=== PATIENT | male | born 1960 | race Two or more races ===

== ENCOUNTER 2019-02-07 22:43 | Inpatient (IN) | payer MEDICARE, OTHER ==
[~2019-02-07] VITALS: Ht 170.2 cm; Wt 70.8 kg
--- NOTE | 2019-02-07 23:00 | NUR ---
PATIENT REFUSED VITALS TAKEN, PULLED THE BP CUFF, STATED,"LEAVE ME ALONE."
--- NOTE | 2019-02-07 23:10 | NUR ---
INITIAL ACCUCHECK DONE ON ADMISSION, 232 MG/DL, PATIENT REFUSED ANY MEDS, STATED, " I DON'T NEED ANYTHING, LEAVE ME ALONE." OFFERED HS SNACKS, ALSO REFUSED.
--- NOTE | 2019-02-07 23:15 | NUR ---
GPS ORACLE OBIEE DEVELOPER NOTE: ADMITTED A 58 YEAR OLD MALE FROM [facility], INITIALLY CAME FROM A BOARD AND CARE, BROUGHT IN BY PARAMEDICS VIA GURNEY SECONDARY TO ERRATIC BEHAVIOR, RAN OUT INTO THE STREET, REFUSED TO GET UP. PATIENT ADMITTED ON 5150 HOLD FOR GD. PATIENT IS A/O X2-3, CONFUSED, DISORGANIZED, VERBALLY ABUSIVE, NON-COMPLIANT AND , DELUSIONAL, NOT ABLE TO PROVIDE FOR HIS FOOD, CUSTODIAL OR CLOTHING. NO ACUTE DISTRESS NOTED, RESPIRATION EVEN, BREATHING PATTERN NON-LABORED, RISE AND FALL OF THE CHEST NOTED. PATIENT REFUSED TO SIGN CONSENT. PATIENT IS VERY UNCOOPERATIVE, ANGRY, DEPRESSED, ANXIOUS, UNKEMPT. REFUSED MRSA SCREEN, REFUSED TOTAL BODY ASSESSMENT, REFUSED PHOTO TAKEN, REFUSED VITALS. PATIENT STATED, LEAVE ME ALONE." PATIENT IS UNDER THE PSYCHIATRIC CARE OF DR. MONTOYA, AND MEDICAL CARE OF MARIA CAMARILLO. MED RECON NEEDS TO BE DONE. BELONGINGS INVENTORIED AND CHECKED FOR CONTRABAND. BED LOCKED AND PLACED ON LOWEST POSITION FOR SAFETY. WILL CONTINUE TO MONITOR Q 15 MINS FOR SAFETY AND BEHAVIOR.
[2019-02-07] MEDS ORDERED: MAGNESIUM HYDROXIDE 30 ML UDC PO PRN (23:30)
[2019-02-07] MEDS ORDERED: MAG HYDROX/AL HYDROX/SIMETH 30 ML UDC PO PRN (23:30)
[2019-02-07] MEDS ORDERED: ACETAMINOPHEN 325 MG TABLET PO PRN (23:30)
[2019-02-08] MEDS ORDERED: AZIT250T13 PO (03:04)
[2019-02-08] MEDS ORDERED: HYDR-4076 PO (03:04)
[2019-02-08] MEDS ORDERED: ATOR80TA PO (03:04)
[2019-02-08] MEDS ORDERED: ALPR0.5T8 PO (03:04)
[2019-02-08] MEDS ORDERED: ASPI-869 PO (03:04)
[2019-02-08] MEDS ORDERED: CARV3.122 PO (03:04)
[2019-02-08] MEDS ORDERED: INSU100I4 SQ (03:04)
[2019-02-08] MEDS ORDERED: LOSA100T31 PO (03:04)
[2019-02-08] MEDS ORDERED: QUET100T PO (03:04)
[2019-02-08] MEDS ORDERED: GABA-532 PO (03:04)
[2019-02-08] MEDS ORDERED: NITR0.4T48 SL (03:04)
[2019-02-08] MEDS ORDERED: CELE200C PO (03:04)
[2019-02-08] MEDS ORDERED: LORA0.5T PO (03:04)
[2019-02-08] MEDS ORDERED: AMLO10TA7 PO (03:04)
[2019-02-08] MEDS ORDERED: GUAI120L56 PO (03:04)
--- NOTE | 2019-02-08 06:31 | NUR ---
NURY CAMARILLO FOR MED RECONCILIATION
[2019-02-08 08:00] VITALS: BP 127/75
--- NOTE | 2019-02-08 10:05 | NUR ---
RN-CO: 08:30 Notified Aure Milan SENIOR MATERIALS ANALYST to reconcile home medications.
--- NOTE | 2019-02-08 11:25 | NUR ---
HEMA contacted pt son Cody [phone] for collateral information and discharge planning. Cody informed HEMA that pt has been living at [place] [id number] for the past 4 months and wishes for pt to return back to the facility.
--- NOTE | 2019-02-08 11:27 | NUR ---
SW contacted [facility] [address] [place] [address] and spoke with Kendra who stated pt is able to return once stable for discharge.
--- NOTE | 2019-02-08 12:07 | NUR ---
INITIAL DISCHARGE PLAN: Per yohan Ross [phone], pt will return to [facility] [address] [facility] [address] . HEMA spoke with Kendra who stated pt is able to return once stable for discharge. HEMA will help form a safe and proper discharge plan in collaboration with .
[2019-02-08] MEDS ORDERED: CELECOXIB 100 MG CAPSULE PO PRN (13:30)
[2019-02-08] MEDS: ASPIRIN EC 325 MG TABLET.DR PO SCH (13:30)
[2019-02-08] MEDS ORDERED: hydrALAZINE HCL 25 MG TABLET PO PRN (13:30)
[2019-02-08] MEDS ORDERED: NITROGLYCERIN 0.4 MG/TAB BOTTLE SL PRN (13:30)
[2019-02-08] MEDS: GABAPENTIN 100 MG CAPSULE PO SCH ×2 (14:49→17:00)
[2019-02-08] MEDS: CARVEDILOL 3.125 MG TABLET PO SCH ×2 (14:50→17:00)
[2019-02-08] MEDS: AMLODIPINE BESYLATE 10 MG TABLET PO SCH (14:50)
[2019-02-08] MEDS: LORAZEPAM 0.5 MG TABLET PO PRN (14:57)
--- NOTE | 2019-02-08 14:57 | NUR ---
GROUP NOTE: SW prompted pt to attend group, pt refused to participate and stated he needed his insulin and wasn't going out of his room until he received it. HEMA prompted nurse to pts room.
[2019-02-08 16:00] VITALS: BP 146/88
[2019-02-08 16:10] LABS: BASOPHILS # (AUTO) 0.1 /CMM (0.0-0.2); BASOPHILS % (AUTO) 1.3 % (0.0-2.0); EOSINOPHILS % (AUTO) 1.8 % (0.0-6.0); HEMATOCRIT 39 % (39-51); HEMOGLOBIN 12.8 g/dL (13.5-17.5); LYMPHOCYTES % (AUTO) 13.9 % (20.0-44.0); MEAN CORPUSCULAR HGB CONC 33 g/dl (31.0-36.0); MEAN CORPUSCULAR VOLUME 95 fL (80-96); MONOCYTES # (AUTO) 0.4 /CMM (0.1-1.30); MONOCYTES % (AUTO) 6.1 % (2.0-12.0); NEUTROPHILS # (AUTO) 5.5 /CMM (1.8-8.9); NEUTROPHILS % (AUTO) 76.9 % (43.0-81.0); PLATELET COUNT (AUTO) 337 /CMM (150-450); RED BLOOD CELL COUNT(AUTO) 4.09 MIL/uL (4.5-6.0); WHITE BLOOD COUNT (AUTO) 7.2 K/uL (4.3-11.0)
[2019-02-08 16:21] LABS: ALBUMIN 2.8 g/dL (3.4-5.0); BILIRUBIN,TOTAL 0.4 mg/dL (0.2-1.0); CALCIUM, SERUM 9.2 mg/dL (8.5-10.1); CHOLESTEROL 112 mg/dL (<200); CREATININE 1.9 mg/dL (0.6-1.3); HDL CHOLESTEROL 58 mg/dL (40-60); LDL 48 mg/dL (0-99); TOTAL PROTEIN, SERUM 6.5 g/dL (6.4-8.2); TRIGLYCERIDES 79 mg/dL (30-150)
[2019-02-08] MEDS: QUETIAPINE FUMARATE 25 MG TABLET PO SCH (17:00)
[2019-02-08] MEDS: QUETIAPINE FUMARATE 100 MG TABLET PO SCH (17:00)
--- NOTE | 2019-02-08 18:45 | NUR ---
Arrived and received patient in bedroom sleeping. Patient is alert and oriented x2. Patient is depressed, isolative, lack of appetite and easily agitated. Patient is medication compliant. Redirected and reoriented patient as needed. Q15 minute safety and behavior checks as needed. Encouraged patient to attend group and participate. Encouraged patient to complete ADLs independently. Call Dr. Milna and received ordered to place pt on Moderate Sliding Scale for DM. Patient is in bedroom resting with no distress noted at this time. Will continue with plan of care.
[2019-02-08] MEDS ORDERED: DEXTROSE 50%-WATER 50 ML DISP.SYRIN IV PRN (19:00)
--- NOTE | 2019-02-08 19:30 | NUR ---
GPS RN NOTE, RECEIVED PATIENT AWAKE AND IN ROOM NO S/S OR COMPLAINTS OF PAIN AT THIS TIME. PATIENT IS DISPLAYING NO S/S OF APPARENT DISTRESS AT THIS TIME. PATIENT BREATHING IS UNLABORED WITH EQUAL RISE AND FALL OF THE CHEST. PATIENT IS ALERT AND ORIENTED X 2 ON ROOM AIR WITH A SPO2 OF 96%. PATIENT IS COMPLAINT WITH MEDICATION, DISORGANIZED, ANXIOUS, COOPERATIVE, ISOLATIVE, AND NEEDS REORIENTATION. PATIENT DENIES SUICIDE AND HOMICIDAL IDEATIONS AT THIS TIME. PATIENT ASSISTED WITH TURNING AND REPOSITIONING Q2HR AND PRN FOR COMFORT AND CIRCULATION. PATIENT HAS NO NEEDS AT THIS TIME. PATIENT EDUCATED ON THE USE OF THE CALL SONG. PATIENT BED SIDE RAILS ARE UP X 2 FOR SAFETY, BED IS LOCKED AND LOW. WILL CONTINUE TO MONITOR AND MAINTAIN SAFETY Q15 MIN WITH THE HELP OF STAFF.
[2019-02-08 20:00] VITALS: BP 97/50
[2019-02-08] MEDS: ATORVASTATIN 40 MG TABLET PO SCH (21:32)
[2019-02-08] MEDS: DIVALPROEX SODIUM 250 MG TABLET.DR PO SCH (21:33)
[2019-02-08] MEDS: BLOOD SUGAR DIAGNOSTIC 1 EACH STRIP VI SCH (21:37)
[2019-02-08] MEDS: *INSULIN REGULAR(HUMULIN R)HUM 100 UNIT/ML VIAL SQ PRN (21:44)
--- NOTE | 2019-02-08 21:44 | NUR ---
GPS RN NOTE, PERFORMED ACCU CHECK ON PATIENT WITH A BLOOD SUGAR RESULT OF 215. GAVE 4 UNITS OF REGULAR INSULIN PER SLIDING SCALE. GAVE CHOCOLATE PUDDING A SNACK. WILL CONTINUE TO MONITOR THIS PATIENT.
--- NOTE | 2019-02-08 21:48 | NUR ---
GPS RN NOTE, PATIENT HAS A COMPLAINT OF RIGHT KNEE PAIN AT 3 OUT 10 ON THE PAIN SCALE AND IS REQUESTING CELEBREX AT THIS TIME. PATIENT VITAL SIGNS ARE STABLE. GAVE CELEBREX 100 MG PO Q12HR PRN ORDERED. WILL REASSESS FOR PAIN AND I WILL CONTINUE TO MONITOR THIS PATIENT.
[2019-02-09 08:00] VITALS: BP 124/80
[2019-02-09] MEDS: BLOOD SUGAR DIAGNOSTIC 1 EACH STRIP VI SCH ×4 (08:03→21:15)
[2019-02-09] MEDS: INSULIN REGULAR, HUMAN 100 UNIT/ML 3 ML VIAL SQ PRN ×2 (08:05→13:11)
[2019-02-09] MEDS: QUETIAPINE FUMARATE 100 MG TABLET PO SCH ×3 (09:24→21:01)
[2019-02-09] MEDS: GABAPENTIN 100 MG CAPSULE PO SCH ×3 (09:24→16:59)
[2019-02-09] MEDS: AMLODIPINE BESYLATE 10 MG TABLET PO SCH (09:24)
[2019-02-09] MEDS: CARVEDILOL 3.125 MG TABLET PO SCH ×2 (09:25→16:57)
[2019-02-09] MEDS: ASPIRIN EC 325 MG TABLET.DR PO SCH (09:25)
[2019-02-09] MEDS: DIVALPROEX SODIUM 250 MG TABLET.DR PO SCH ×2 (09:25→20:56)
[2019-02-09] MEDS: QUETIAPINE FUMARATE 25 MG TABLET PO SCH ×2 (09:29→16:58)
--- NOTE | 2019-02-09 12:30 | NUR ---
cheyenne coronel senior java architect in to see pt.
--- NOTE | 2019-02-09 13:00 | NUR ---
rn noted grogginess-spoke with dr. ramirez and med regimen altered.
--- NOTE | 2019-02-09 13:12 | NUR ---
c/o stomachache given maalox 30 ml po.
[2019-02-09 16:00] VITALS: BP 109/58
[2019-02-09] MEDS: LOSARTAN POTASSIUM 50 MG TABLET PO SCH (16:57)
--- NOTE | 2019-02-09 18:35 | NUR ---
no change in status.
[2019-02-09 20:15] VITALS: BP 139/77
[2019-02-09] MEDS: ATORVASTATIN 40 MG TABLET PO SCH (20:57)
[2019-02-09] MEDS: *INSULIN REGULAR(HUMULIN R)HUM 100 UNIT/ML VIAL SQ PRN (21:17)
[2019-02-10 08:00] VITALS: BP 120/75
[2019-02-10] MEDS: BLOOD SUGAR DIAGNOSTIC 1 EACH STRIP VI SCH ×4 (08:23→21:18)
[2019-02-10 08:53] LABS: BASOPHILS # (AUTO) 0.1 /CMM (0.0-0.2); BASOPHILS % (AUTO) 0.8 % (0.0-2.0); EOSINOPHILS % (AUTO) 4.1 % (0.0-6.0); HEMATOCRIT 41 % (39-51); HEMOGLOBIN 13.9 g/dL (13.5-17.5); LYMPHOCYTES # (AUTO) 2.5 /CMM (0.8-4.8); LYMPHOCYTES % (AUTO) 23.4 % (20.0-44.0); MEAN CORPUSCULAR HGB CONC 34 g/dl (31.0-36.0); MEAN CORPUSCULAR VOLUME 93 fL (80-96); MONOCYTES # (AUTO) 0.5 /CMM (0.1-1.30); MONOCYTES % (AUTO) 4.7 % (2.0-12.0); NEUTROPHILS # (AUTO) 7.1 /CMM (1.8-8.9); PLATELET COUNT (AUTO) 375 /CMM (150-450); RED BLOOD CELL COUNT(AUTO) 4.43 MIL/uL (4.5-6.0); WHITE BLOOD COUNT (AUTO) 10.6 K/uL (4.3-11.0)
[2019-02-10 09:00] LABS: CALCIUM, SERUM 9.7 mg/dL (8.5-10.1); CREATININE 1.6 mg/dL (0.6-1.3); PHOSPHORUS 3.4 mg/dL (2.5-4.9); POTASSIUM 4.1 mmol/L (3.5-5.1)
[2019-02-10] MEDS: INSULIN REGULAR, HUMAN 100 UNIT/ML 3 ML VIAL SQ PRN (09:05)
[2019-02-10] MEDS: DIVALPROEX SODIUM 250 MG TABLET.DR PO SCH ×2 (09:07→21:12)
[2019-02-10] MEDS: AMLODIPINE BESYLATE 10 MG TABLET PO SCH (09:07)
[2019-02-10] MEDS: GABAPENTIN 100 MG CAPSULE PO SCH ×3 (09:08→17:39)
[2019-02-10] MEDS: ASPIRIN EC 325 MG TABLET.DR PO SCH (09:08)
[2019-02-10] MEDS: LOSARTAN POTASSIUM 50 MG TABLET PO SCH (09:08)
[2019-02-10] MEDS: CARVEDILOL 3.125 MG TABLET PO SCH ×2 (09:09→17:39)
[2019-02-10] MEDS: QUETIAPINE FUMARATE 25 MG TABLET PO SCH ×2 (09:14→17:39)
[2019-02-10] MEDS: LORAZEPAM 0.5 MG TABLET PO PRN (11:02)
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
[2019-02-10] MEDS ORDERED: OLANZAPINE 10 MG VIAL IM ONE (11:30)
[2019-02-10] MEDS ORDERED: LORAZEPAM INJ 2 MG/ML VIAL IM ONE (11:30)
[2019-02-10 16:00] VITALS: BP 117/67
--- NOTE | 2019-02-10 18:19 | NUR ---
RN NOTES PATIENT EATING DINNER AT THIS TIME. REFUSED PM MEDS. REFUSED 1200 AND 1730 ACCUCHECK. ALL NEEDS MET AT THIS TIME. NO OTHER SIGNIFICANT CHANGE IN CONDITION. WILL ENDORSE TO NEXT SHIFT FOR KIMMY
[2019-02-10 20:05] VITALS: BP 153/65
[2019-02-10] MEDS: ATORVASTATIN 40 MG TABLET PO SCH (21:13)
[2019-02-10] MEDS: QUETIAPINE FUMARATE 100 MG TABLET PO SCH (21:13)
[2019-02-10] MEDS: *INSULIN REGULAR(HUMULIN R)HUM 100 UNIT/ML VIAL SQ PRN (21:21)
[2019-02-10] MEDS: TEMAZEPAM 7.5 MG CAPSULE PO PRN (21:37)
[2019-02-10 22:30] VITALS: BP 132/72
[2019-02-11 08:00] VITALS: BP 125/88
[2019-02-11] MEDS: BLOOD SUGAR DIAGNOSTIC 1 EACH STRIP VI SCH ×4 (08:22→21:29)
[2019-02-11] MEDS: GABAPENTIN 100 MG CAPSULE PO SCH ×3 (08:23→16:38)
[2019-02-11] MEDS: DIVALPROEX SODIUM 250 MG TABLET.DR PO SCH ×3 (08:23→20:37)
[2019-02-11] MEDS: LOSARTAN POTASSIUM 50 MG TABLET PO SCH (08:23)
[2019-02-11] MEDS: ASPIRIN EC 325 MG TABLET.DR PO SCH (08:23)
[2019-02-11] MEDS: QUETIAPINE FUMARATE 25 MG TABLET PO SCH ×2 (08:23→16:36)
[2019-02-11] MEDS: AMLODIPINE BESYLATE 10 MG TABLET PO SCH (08:24)
[2019-02-11] MEDS: CARVEDILOL 3.125 MG TABLET PO SCH ×2 (08:24→16:38)
[2019-02-11] MEDS: Z GUARD REMEDY 4 OZ OINT TP SCH ×2 (08:47→20:53)
[2019-02-11] MEDS: INSULIN REGULAR, HUMAN 100 UNIT/ML 3 ML VIAL SQ PRN (12:00)
--- NOTE | 2019-02-11 14:35 | NUR ---
Group Note: SW prompted pt to attend group, pt refused to participate and stated that he wanted to remain in his room.
[2019-02-11 16:00] VITALS: BP 94/70
[2019-02-11 19:55] VITALS: BP 113/68
[2019-02-11] MEDS: ATORVASTATIN 40 MG TABLET PO SCH (21:28)
[2019-02-11] MEDS: QUETIAPINE FUMARATE 100 MG TABLET PO SCH (21:29)
[2019-02-11] MEDS: *INSULIN REGULAR(HUMULIN R)HUM 100 UNIT/ML VIAL SQ PRN (21:37)
[2019-02-11] MEDS: TEMAZEPAM 7.5 MG CAPSULE PO PRN (21:39)
[2019-02-12] MEDS: BLOOD SUGAR DIAGNOSTIC 1 EACH STRIP VI SCH ×4 (07:51→21:49)
[2019-02-12 08:00] VITALS: BP 107/75
[2019-02-12] MEDS: DIVALPROEX SODIUM 250 MG TABLET.DR PO SCH ×3 (08:23→21:07)
[2019-02-12] MEDS: ASPIRIN EC 325 MG TABLET.DR PO SCH (08:23)
[2019-02-12] MEDS: CARVEDILOL 3.125 MG TABLET PO SCH ×2 (08:23→16:31)
[2019-02-12] MEDS: QUETIAPINE FUMARATE 25 MG TABLET PO SCH ×2 (08:24→16:31)
[2019-02-12] MEDS: GABAPENTIN 100 MG CAPSULE PO SCH ×3 (08:24→16:31)
[2019-02-12] MEDS: AMLODIPINE BESYLATE 10 MG TABLET PO SCH (08:25)
[2019-02-12] MEDS: INSULIN REGULAR, HUMAN 100 UNIT/ML 3 ML VIAL SQ PRN ×3 (08:28→17:14)
[2019-02-12] MEDS: Z GUARD REMEDY 4 OZ OINT TP SCH ×2 (09:00→21:08)
--- NOTE | 2019-02-12 09:29 | NUR ---
HEMA contacted pt son Cody [phone] and informed him pt has a discharge order for Monday02/15/19, son agreed and stated he would be unable to pick pt up and transport him to [facility]. HEMA informed him that she would arrange transportation with [facility] or provide pt with transportation.
[2019-02-12] MEDS: LOSARTAN POTASSIUM 50 MG TABLET PO SCH (09:30)
--- NOTE | 2019-02-12 09:37 | NUR ---
HEMA contacted [facility] [address] [facility] and spoke with Kendra and informed her pt was being discharged on Monday02/15/19 and also asked if they were able to arrange transportation. Kendra stated she would have her windows application administrator contact HEMA.
--- NOTE | 2019-02-12 09:41 | NUR ---
WOUND CARE CONSULT: PT PRESENTS WITH AREA OF IRRITATED SKIN TO RT BUTTOCK, PRESENT ON ADMISSION. RECOMMENDATIONS MADE FOR SKIN CARE AND PROTECTION. DISCUSSED WITH NURSING STAFF. PT ALSO NOTED TO HAVE LONG CURLING TOENAILS PRESENT ON ADMISSION. RECOMMEND DPM CONSULT FOR NAIL CARE. DISCUSSED WITH NURSING STAFF. DR LUQUE NOTIFIED OF CONSULT REQUEST. WILL SEE PRN. CURRENT NICOLASA SCORE IS 18. MD IN AGREEMENT WITH PLAN OF CARE. Addendum: 02/12/19 at 0943 by HOUSTON CRUZ WNDNU Amended: Links added.
--- NOTE | 2019-02-12 10:51 | NUR ---
SW received a call from Kanika, higher education administrator at [facility] [address] [facility] [address] stating she was unable to provide transportation for pt and also requested clinical information and prescription to be faxed to [phone].
[2019-02-12 16:00] VITALS: BP 140/72
--- NOTE | 2019-02-12 16:09 | NUR ---
GROUP NOTE: Pt was present but unable to participate due to cognitive impairment. pt unable to participate or follow direction in a group setting.
[2019-02-12 19:53] VITALS: BP 121/70
[2019-02-12] MEDS: ATORVASTATIN 40 MG TABLET PO SCH (21:08)
[2019-02-12] MEDS: QUETIAPINE FUMARATE 100 MG TABLET PO SCH (21:08)
[2019-02-12] MEDS: *INSULIN REGULAR(HUMULIN R)HUM 100 UNIT/ML VIAL SQ PRN (21:52)
[2019-02-13] MEDS: BLOOD SUGAR DIAGNOSTIC 1 EACH STRIP VI SCH ×4 (07:44→21:01)
[2019-02-13] MEDS: INSULIN REGULAR, HUMAN 100 UNIT/ML 3 ML VIAL SQ PRN ×2 (07:45→11:54)
[2019-02-13 08:00] VITALS: BP 119/69
[2019-02-13] MEDS: ASPIRIN EC 325 MG TABLET.DR PO SCH (08:29)
[2019-02-13] MEDS: DIVALPROEX SODIUM 250 MG TABLET.DR PO SCH ×3 (08:29→21:01)
[2019-02-13] MEDS: GABAPENTIN 100 MG CAPSULE PO SCH ×3 (08:29→16:19)
[2019-02-13] MEDS: QUETIAPINE FUMARATE 25 MG TABLET PO SCH ×2 (08:29→16:20)
[2019-02-13] MEDS: AMLODIPINE BESYLATE 10 MG TABLET PO SCH (08:30)
[2019-02-13] MEDS: LOSARTAN POTASSIUM 50 MG TABLET PO SCH (08:30)
[2019-02-13] MEDS: CARVEDILOL 3.125 MG TABLET PO SCH ×2 (08:30→16:19)
[2019-02-13] MEDS: Z GUARD REMEDY 4 OZ OINT TP SCH ×2 (09:00→21:40)
--- NOTE | 2019-02-13 15:00 | NUR ---
HEMA faxed clinical information to Kanika, siebel administrator at [facility] [address], [facility] [address] .
--- NOTE | 2019-02-13 15:23 | NUR ---
Group Note: SW prompted pt to attend group, pt refused to participate and stated that he wanted to remain in his room.
[2019-02-13 16:00] VITALS: BP 103/68
[2019-02-13 20:01] VITALS: BP 124/79
[2019-02-13] MEDS: QUETIAPINE FUMARATE 100 MG TABLET PO SCH (21:00)
[2019-02-13] MEDS: ATORVASTATIN 40 MG TABLET PO SCH (21:01)
[2019-02-13] MEDS: *INSULIN REGULAR(HUMULIN R)HUM 100 UNIT/ML VIAL SQ PRN (21:07)
[2019-02-14] MEDS: BLOOD SUGAR DIAGNOSTIC 1 EACH STRIP VI SCH ×4 (07:25→20:45)
[2019-02-14 08:00] VITALS: BP 124/63
[2019-02-14] MEDS: INSULIN REGULAR, HUMAN 100 UNIT/ML 3 ML VIAL SQ PRN ×3 (08:23→17:26)
[2019-02-14] MEDS: GABAPENTIN 100 MG CAPSULE PO SCH ×3 (08:27→16:32)
[2019-02-14] MEDS: DIVALPROEX SODIUM 250 MG TABLET.DR PO SCH ×3 (08:27→20:48)
[2019-02-14] MEDS: ASPIRIN EC 325 MG TABLET.DR PO SCH (08:27)
[2019-02-14] MEDS: CARVEDILOL 3.125 MG TABLET PO SCH ×2 (08:28→16:33)
[2019-02-14] MEDS: AMLODIPINE BESYLATE 10 MG TABLET PO SCH (08:28)
[2019-02-14] MEDS: QUETIAPINE FUMARATE 25 MG TABLET PO SCH ×2 (08:28→16:32)
[2019-02-14] MEDS: LOSARTAN POTASSIUM 50 MG TABLET PO SCH (08:37)
[2019-02-14] MEDS: Z GUARD REMEDY 4 OZ OINT TP SCH ×2 (09:24→20:56)
--- NOTE | 2019-02-14 13:25 | NUR ---
GROUP NOTE: Pt was present but unable to participate due to cognitive impairment. pt unable to participate or follow direction in a group setting.
[2019-02-14 16:00] VITALS: BP 120/71
[2019-02-14 20:00] VITALS: BP 133/72
[2019-02-14] MEDS: QUETIAPINE FUMARATE 100 MG TABLET PO SCH (20:49)
[2019-02-14] MEDS: ATORVASTATIN 40 MG TABLET PO SCH (20:49)
[2019-02-14] MEDS: *INSULIN REGULAR(HUMULIN R)HUM 100 UNIT/ML VIAL SQ PRN (21:39)
--- NOTE | 2019-02-14 21:53 | NUR ---
@ 2044, asking for snacks, accucheck done 273 mg/dl, 6 units reg. insulin sc administered. snacks given, egg sandwich given.
[2019-02-15] MEDS: *INSULIN REGULAR(HUMULIN R)HUM 100 UNIT/ML VIAL SQ PRN (07:54)
[2019-02-15] MEDS: BLOOD SUGAR DIAGNOSTIC 1 EACH STRIP VI SCH ×2 (08:15→12:00)
[2019-02-15] MEDS: ASPIRIN EC 325 MG TABLET.DR PO SCH (08:38)
[2019-02-15] MEDS: GABAPENTIN 100 MG CAPSULE PO SCH ×3 (08:38→16:46)
[2019-02-15] MEDS: DIVALPROEX SODIUM 250 MG TABLET.DR PO SCH ×2 (08:38→16:46)
[2019-02-15] MEDS: Z GUARD REMEDY 4 OZ OINT TP SCH (08:39)
[2019-02-15] MEDS: QUETIAPINE FUMARATE 25 MG TABLET PO SCH ×2 (08:39→16:46)
[2019-02-15] MEDS: LOSARTAN POTASSIUM 50 MG TABLET PO SCH (08:40)
[2019-02-15] MEDS: AMLODIPINE BESYLATE 10 MG TABLET PO SCH (08:40)
[2019-02-15] MEDS: CARVEDILOL 3.125 MG TABLET PO SCH ×2 (08:40→16:46)
--- NOTE | 2019-02-15 08:41 | NUR ---
GPS/RN PT REFUSED TO LET GPS STUFF TO CHECK HIS BP. NO BP MEDS GIVEN
--- NOTE | 2019-02-15 09:52 | NUR ---
DR. MONTOYA GAVE AN ORDER TO D/C HOLD AND D/C TO [facility] AND TO FOLLOW UP WITH PSYCH AND MEDICAL DOCTORS. Addendum: 02/15/19 at 1507 by ERNIE BEJARANO RN PT. IS FOR D/C TO [facility]
--- NOTE | 2019-02-15 10:41 | NUR ---
DISCHARGE NOTE: Pt will be discharged at 12:00pm via [facility] to [facility] [address] [place] [address] . Pts son Cody [phone] has been notified and agrees with discharge plan. SW also contacted board and care accounting administrator Srinivas who is in agreeable with pts discharge. Pts mood was anxious with congruent affect. Pt keeps repeating that he wants to go to [place] with his girlfriend which he does not have according to pts son. Pt will follow up with [address] [facility] [address] and was encouraged to go on Monday February 18, 2019 at 9:00am for an intake. Pt was also given a referral to [facility] Address: [address] [place] [address] . The multidisciplinary exit care form was done, printed, signed, and given to the patient.
--- NOTE | 2019-02-15 14:07 | NUR ---
DISCHARGE NOTE: Pt refused to discharge to [facility]. Pt was in the lobby waiting for taxi when the taxi arrived pt refused to get into the taxi stating he wanted to go to [place] with his girlfriend. HEMA explained that he did not have a girlfriend and that he was returning to his [facility] care that he has been living at for over a year. Pt refused to get up and stated he wanted the hospital to call the government relations manager on him because he wasn't leaving. HEMA called pts son Cody [phone] to assist with discharge Cody attempted to convince pt to leave but pt was angry and hung up the phone. After several minutes charge nurse Flaco was able to convince pt to return to the unit. Flaco contacted psychiatrist Dr. Slade who stated that pt was cleared for discharge and could not stay in the unit. HEMA faxed a referral to Jani, marketing intern at [facility] [phone] for placement. HEMA also discussed placement at a SNF with pts son who agreed and stated pt will benefit from a SNF as he feels pt declined mentally and physically while living at the [facility]. Son also stated he was unable to assist with pts discharge as pt becomes really agitated and verbally aggressive when he tries to assist with his care. HEMA also contacted Kanika, voice network administrator at [facility] [phone] who is requesting a written letter stating pt will not return to [facility]. HEMA informed her that she is waiting for SNF acceptance and will fax letter as soon as pts discharge was finalized.
[2019-02-15] MEDS: LORAZEPAM 0.5 MG TABLET PO PRN (14:40)
--- NOTE | 2019-02-15 15:00 | NUR ---
GPS/RN REPORT GIVEN TO STEVE YUN AT [facility] AND MEDS LIST FAXED TO THE FACILITY WELL. PT' S SON NOTIFIED OF NEW DISCHARGE PLANS AND AGREED. AMBULANCE SCHEDULED FOR 1630
--- NOTE | 2019-02-15 15:32 | NUR ---
DISCHARGE NOTE: Pt will be discharged at 430 via [facility]BULNZ to [facility] Address: [address] [place] [address] . Pts son Cody [phone] has been notified and agrees with discharge plan. Pts mood is agitated with congruent affect and stating he wants to be discharged to [place]. Pt will be under the care of Psychiatrist: Dr. Slade Address: [address] [place] [address] and Barrel Finisher: Dr Saucedo Address: [address] [address] [phone]. The multidisciplinary exitcare form was done, printed, signed, and given to the patient.
[2019-02-15 16:00] VITALS: BP 130/83
[2019-02-15 16:46] VITALS: BP 130/83
--- NOTE | 2019-02-15 17:15 | NUR ---
GPS/RN PT DISCHARGED TO [facility] VIA AMBULANCE. VSS. NO SI OR HI AT THE TIME OF D/C. PROPERTY AND DENTURES RETURNED. Addendum: 02/15/19 at 1737 by RAVINDRA JOYA RN DENIES SI OR HI AT THE TIME OF D/C. EXIT CARE /MEDS LIST PROVIDED TO THE AMBULANCE.
== END 2019-02-15 17:15 | DRG 885 ==
LOC: GPS 22:43
PROVIDERS: ADMIT Psychiatry & Neurology Psychiatry; ATTEND Nurse Practitioner Acute Care
DX: F29 Unspecified psychosis not due to a substance or known physiological condition (principal); N18.9 Chronic kidney disease, unspecified; N17.0 Acute kidney failure with tubular necrosis; E11.65 Type 2 diabetes mellitus with hyperglycemia; E44.0 Moderate protein-calorie malnutrition; F41.9 Anxiety disorder, unspecified; K74.60 Unspecified cirrhosis of liver; Z86.19 Personal history of other infectious and parasitic diseases; Z86.73 Personal history of transient ischemic attack (TIA), and cerebral infarction without residual deficits; I25.10 Atherosclerotic heart disease of native coronary artery without angina pectoris; I12.9 Hypertensive chronic kidney disease with stage 1 through stage 4 chronic kidney disease, or unspecified chronic kidney disease; E11.22 Type 2 diabetes mellitus with diabetic chronic kidney disease; D63.1 Anemia in chronic kidney disease; Z68.24 Body mass index [BMI] 24.0-24.9, adult; E78.5 Hyperlipidemia, unspecified; F03.90 Unspecified dementia, unspecified severity, without behavioral disturbance, psychotic disturbance, mood disturbance, and anxiety; B35.1 Tinea unguium; E11.42 Type 2 diabetes mellitus with diabetic polyneuropathy; N40.0 Benign prostatic hyperplasia without lower urinary tract symptoms
CPT/HCPCS: 36415; 80048-TC; 80053-TC; 80061-TC; 80164-TC; 82962-TC; 83735-TC; 84100-TC; 85025-TC; J1815; J2060; J3490

== ENCOUNTER 2019-02-20 15:00 | Inpatient (IN) | payer MEDICARE, OTHER ==
[~2019-02-20] VITALS: Ht 162.6 cm; Wt 68.0 kg
[~2019-02-20 15:00] MED LIST: AMLO10TA7 PO; ASPI-869 PO; ATOR80TA PO; AZIT250T13 PO; CARV3.122 PO; CELE200C PO; GABA-532 PO; GUAI120L56 PO; HYDR-4076 PO; INSU100I4 SQ; LOSA100T31 PO; NITR0.4T48 SL
--- NOTE | 2019-02-20 15:30 | NUR ---
PATIENT BIB [facility] FOR PSYCH EVAL, ATTEMPTS TO HIT HEAD ON WALL/FLOOR. ON ROOM AIR, BREATHING EVENLY AND UNLABORED. DENIES ANY PAIN AT THIS TIME. KEPT COMFORTABLE, WILL CONTINUE TO MONITOR ACCORDINGLY.
[2019-02-20 15:39] LABS: APPEARANCE,URINE Clear (CLEAR); BILIRUBIN,URINE Negative (NEGATIVE); BLOOD, URINE Negative Ery/uL (NEGATIVE); COLOR,URINE Yellow (YELLOW); KETONES,URINE Negative (NEGATIVE); LEUKOCYTE ESTERASE ,URINE Negative (NEGATIVE); NITRITE, URINE Negative (NEGATIVE); PROTEIN,URINE >=300 mg/dl (NEGATIVE); UGLUCOSE 250 MG/DL mg/dL (NEGATIVE); UROBILINOGEN,URINE 0.2 EU/dL (0.2)
[2019-02-20 16:17] LABS: BASOPHILS # (AUTO) 0.1 /CMM (0.0-0.2); BASOPHILS % (AUTO) 0.9 % (0.0-2.0); EOSINOPHILS % (AUTO) 2.3 % (0.0-6.0); HEMATOCRIT 34 % (39-51); HEMOGLOBIN 11.6 g/dL (13.5-17.5); LYMPHOCYTES # (AUTO) 1.9 /CMM (0.8-4.8); LYMPHOCYTES % (AUTO) 23.7 % (20.0-44.0); MEAN CORPUSCULAR HGB CONC 34 g/dl (31.0-36.0); MEAN CORPUSCULAR VOLUME 94 fL (80-96); MONOCYTES # (AUTO) 0.5 /CMM (0.1-1.30); MONOCYTES % (AUTO) 6.7 % (2.0-12.0); NEUTROPHILS # (AUTO) 5.2 /CMM (1.8-8.9); NEUTROPHILS % (AUTO) 66.4 % (43.0-81.0); PLATELET COUNT (AUTO) 271 /CMM (150-450); RED BLOOD CELL COUNT(AUTO) 3.64 MIL/uL (4.5-6.0); WHITE BLOOD COUNT (AUTO) 7.8 K/uL (4.3-11.0)
--- NOTE | 2019-02-20 16:20 | NUR ---
BED ASSIGNED 213B.
[2019-02-20 16:26] LABS: CALCIUM, SERUM 8.6 mg/dL (8.5-10.1); CARBON DIOXIDE 25 mmol/L (21-32); CHLORIDE 105 mmol/L (98-107); CREATININE 1.7 mg/dL (0.6-1.3); GLUCOSE 309 mg/dL (74-106); POTASSIUM 4.5 mmol/L (3.5-5.1); SODIUM SERUM 139 mmol/L (136-145); UREA NITROGEN, BLOOD 40 mg/dL (7-18)
[2019-02-20 16:32] LABS: ACETAMINOPHEN 11 ug/ml (10-30); ALANINE AMINOTRANSFERASE 30 U/L (12-78); ALBUMIN 2.6 g/dL (3.4-5.0); ALCOHOL, BLOOD < 3 mg/dL (0-0); ALKALINE PHOSPHATASE 114 U/L (46-116); ASPARTATE AMINOTRANSFERASE 25 U/L (15-37); BILIRUBIN,DIRECT 0.1 mg/dL (0.0-0.2); BILIRUBIN,TOTAL 0.3 mg/dL (0.2-1.0); TOTAL PROTEIN, SERUM 6.3 g/dL (6.4-8.2)
[2019-02-20 16:33] LABS: SALICYLATE 1.3 mg/dL (2.8-20.0)
[2019-02-20] MEDS ORDERED: NA P133E RC (16:37)
[2019-02-20] MEDS ORDERED: QUET25TA PO (16:37)
[2019-02-20] MEDS ORDERED: SENN-168 PO (16:37)
[2019-02-20] MEDS ORDERED: INSU100V27 SQ (16:37)
[2019-02-20] MEDS ORDERED: INSU100V7 SQ (16:37)
[2019-02-20] MEDS ORDERED: BISA10SU61 RC (16:37)
[2019-02-20] MEDS ORDERED: DOCU100C36 PO (16:37)
[2019-02-20] MEDS ORDERED: QUET100T PO (16:37)
[2019-02-20] MEDS ORDERED: DIVA-76 PO ×2 (16:55)
[2019-02-20] MEDS ORDERED: BLOO-668 IN (16:57)
[2019-02-20] MEDS ORDERED: IV NS 0.9% 500 ML BAG IV ONE (17:00)
--- NOTE | 2019-02-20 17:31 | NUR ---
report given to Bing for psych admission and for pepe.
--- NOTE | 2019-02-20 17:58 | NUR ---
wheeled patient via wheelchair in no apparent distress noted to room 213 GPS.
[2019-02-20] MEDS ORDERED: ACETAMINOPHEN 325 MG TABLET PO PRN (18:00)
[2019-02-20] MEDS ORDERED: MAG HYDROX/AL HYDROX/SIMETH 30 ML UDC PO PRN (18:00)
[2019-02-20] MEDS ORDERED: MAGNESIUM HYDROXIDE 30 ML UDC PO PRN (18:00)
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
[2019-02-20 22:00] VITALS: BP 121/85
[2019-02-20] MEDS: LORAZEPAM 0.5 MG TABLET PO PRN (22:14)
[2019-02-20] MEDS ORDERED: BISACODYL SUPP (10 MG) 10 MG/SUPP.RECT SUPP.RECT RC PRN (23:30)
[2019-02-20] MEDS ORDERED: NA PHOS,M-B/NA PHOS,DI-BA 1 EA ENEMA RC PRN (23:30)
--- NOTE | 2019-02-21 03:55 | NUR ---
GPS RN NOTES: PATIENT NOTED TO HAVE AN EPISODE OF EMESIS. COFFEE GROUND IN COLOR. PATIENT CLEANED AND CHANGED INTO A NEW CLEAN GOWN. VITAL SIGNS CHECKED BP 143/80, HR-115. NO OTHER COMPLAINS. WILL MONITOR PATIENT.
[2019-02-21] MEDS: BLOOD SUGAR DIAGNOSTIC 1 EACH STRIP IN SCH ×4 (07:30→21:32)
[2019-02-21] MEDS: AMLODIPINE BESYLATE 10 MG TABLET PO SCH (08:13)
[2019-02-21] MEDS: GABAPENTIN 100 MG CAPSULE PO SCH ×3 (08:13→16:53)
[2019-02-21] MEDS: CARVEDILOL 3.125 MG TABLET PO SCH ×2 (08:14→16:53)
[2019-02-21] MEDS: DOCUSATE SODIUM 100 MG CAPSULE PO SCH ×2 (08:14→16:52)
[2019-02-21] MEDS: ASPIRIN EC 325 MG TABLET.DR PO SCH (08:14)
[2019-02-21] MEDS: LOSARTAN POTASSIUM 50 MG TABLET PO SCH (08:15)
[2019-02-21 08:16] VITALS: BP 129/71
[2019-02-21] MEDS ORDERED: DIVALPROEX SODIUM 250 MG TABLET.DR PO SCH ×2 (09:00→17:00)
--- NOTE | 2019-02-21 10:00 | NUR ---
Arrived and received patient in dining room in marissa chair resting. Patient is alert and oriented x1-2. Patient is confused, delusional and easily agitated. Patient is medication compliant. Administered scheduled medication as ordered. Redirected and reoriented patient as needed. Q15 minute safety and behavior checks as needed. Patient is in dining room participating in group with no distress noted at this time. Will continue with plan of care.
[2019-02-21 11:27] LABS: ALBUMIN 2.8 g/dL (3.4-5.0); BILIRUBIN,TOTAL 0.4 mg/dL (0.2-1.0); CALCIUM, SERUM 8.9 mg/dL (8.5-10.1); CREATININE 1.7 mg/dL (0.6-1.3); POTASSIUM 4.3 mmol/L (3.5-5.1); TOTAL PROTEIN, SERUM 6.9 g/dL (6.4-8.2)
--- NOTE | 2019-02-21 11:30 | NUR ---
Group note: Pt was present and engaged in the group therapy session that took place at 11:30AM regarding support systems. Pt was confused and disoriented and could not provide input.
[2019-02-21] MEDS: LORAZEPAM 0.5 MG TABLET PO PRN (13:18)
--- NOTE | 2019-02-21 14:41 | NUR ---
Psychosocial Note: I, Kristie Dyson PERIOPERATIVE TECH, attest to the patients previous psychosocial information dated 02/08/19 Update On Events leading to Admission and Discharge Plan: Pt has returned to the hospital within 5 days of his previous discharge date due to pts increased agitation and uncontrollable behavior at [facility]. Per psychiatric hold, pt threw himself on the floor and was attempting to hit his head against the floor. The current plan is to increase the patient on his medications and discharge pt to a [facility] or he will return back to [facility]. Per pt, he wants to be discharged to [place] with his girlfriend who he will be marrying soon. Per pts son, Cody [phone] pt does not have a girlfriend and he no longer lives in [facility]. Pt appeared to be in a manic mood with congruent affect. Pt was hitting his head against the hospital bed when admitted and has a red jared on his forehead. Pt presented in a marissa-chair crying wanting to go to [place] to "Linda" Pts speech is childlike and per nursing staff cries and becomes childlike when not given what he wants. SW will form a safe and proper discharge in collaboration with MD and pts son.
[2019-02-21 16:17] VITALS: BP 132/58
[2019-02-21] MEDS: risperiDONE 1 MG TABLET PO SCH (16:51)
[2019-02-21] MEDS: BENZTROPINE MESYLATE (1 MG) 1 MG TABLET PO SCH (16:52)
[2019-02-21] MEDS: DIVALPROEX SODIUM 125 MG CAP.SPRINK PO SCH (16:53)
--- NOTE | 2019-02-21 18:41 | NUR ---
MARQUISE WAS PAGED AND NOTIFIED BY THE PRIMARY NURSE ABOUT THE ACCU CHECK WITH NO SLIDING SCALE AND ORDERED MODERATE SLIDING SCALE ACHS.
[2019-02-21] MEDS ORDERED: DEXTROSE 50%-WATER 50 ML DISP.SYRIN IV PRN (19:00)
[2019-02-21] MEDS: INSULIN REGULAR, HUMAN 100 UNIT/ML 3 ML VIAL SQ PRN (19:23)
--- NOTE | 2019-02-21 19:31 | NUR ---
Son visits, patient requesting for a burger and diet coke.
[2019-02-21 20:00] VITALS: BP 101/58
[2019-02-21] MEDS: TEMAZEPAM 7.5 MG CAPSULE PO PRN ×2 (20:08→21:46)
[2019-02-21] MEDS: INSULIN GLARGINE, 100 UNIT/ML CARTRIDGE SQ SCH (21:36)
[2019-02-21] MEDS: *INSULIN REGULAR(HUMULIN R)HUM 100 UNIT/ML VIAL SQ PRN (21:37)
[2019-02-21] MEDS: SENNOSIDES 8.6 MG TABLET PO SCH (21:46)
[2019-02-21] MEDS: ATORVASTATIN 40 MG TABLET PO SCH (21:46)
[2019-02-22 08:00] VITALS: BP 157/85
[2019-02-22] MEDS: BLOOD SUGAR DIAGNOSTIC 1 EACH STRIP IN SCH ×4 (08:07→21:20)
[2019-02-22] MEDS: DIVALPROEX SODIUM 125 MG CAP.SPRINK PO SCH ×3 (08:08→17:24)
[2019-02-22] MEDS: CARVEDILOL 3.125 MG TABLET PO SCH ×2 (08:08→17:24)
[2019-02-22] MEDS: GABAPENTIN 100 MG CAPSULE PO SCH ×2 (08:09→13:00)
[2019-02-22] MEDS: LOSARTAN POTASSIUM 50 MG TABLET PO SCH (08:09)
[2019-02-22] MEDS: BENZTROPINE MESYLATE (1 MG) 1 MG TABLET PO SCH ×3 (08:09→17:23)
[2019-02-22] MEDS: risperiDONE 1 MG TABLET PO SCH ×3 (08:09→17:25)
[2019-02-22] MEDS: AMLODIPINE BESYLATE 10 MG TABLET PO SCH (08:09)
[2019-02-22] MEDS: ASPIRIN EC 325 MG TABLET.DR PO SCH (08:09)
[2019-02-22] MEDS: DOCUSATE SODIUM 100 MG CAPSULE PO SCH ×2 (08:10→17:24)
[2019-02-22] MEDS ORDERED: OLANZAPINE 10 MG VIAL IM ONE (10:00)
[2019-02-22] MEDS ORDERED: LORAZEPAM INJ 2 MG/ML VIAL IM ONE (10:00)
--- NOTE | 2019-02-22 10:30 | NUR ---
GPS/RN PT WAS AGITATED, NOT REDIRECTABLE , FLAILING ARMS, KICKED THE NURSE AND USED IN APPROPRIATE LANGUAGE. CALLED DR MONTOYA FOR THE ORDERS NEW ORDERD RECEIVED AND CARRIED OUT ZYPREXA 5MG IM ONCE AND ATIVAN 1MG ONCE GIVEN. PT ASSISTED TO THE VIOLETTA CHAIR AND PLACED INTO ACTIVITY ROOM FOR OBSERVATION.
--- NOTE | 2019-02-22 12:17 | NUR ---
GPS/RN PT REFUSED ACCUCHECK OFFERED X3.
--- NOTE | 2019-02-22 14:39 | NUR ---
GROUP NOTE: Pt unable to participate in group due to agitated behavior. Pt received IM on this present day due to pt becoming increasingly agitated and removing all of his clothes and diaper.
[2019-02-22 16:00] VITALS: BP 125/76
--- NOTE | 2019-02-22 16:11 | NUR ---
HEMA contacted pts son, Cody [phone] and discussed pts discharge to a SNF in [facility]. HEMA informed Cody that pt has been adamant about being discharged to [place]. HEMA offered to refer pt to [facility] and [facility], Cody stated that he was okay with SW referring to those facilities as he knows pt does not want live anywhere but in [facility]. HEMA will refer pt to both facilities once stable. Addendum: 02/22/19 at 1622 by KARLOS GARRIDO HEMA also informed son that Department of Clinical Resource Coordinator was interviewing pt due to a complaint they received regarding pt. Son stated, "okay."
--- NOTE | 2019-02-22 16:22 | NUR ---
Alejo Armenta Kayli #[id number]; Quality Assurance/R&D Lab Technician from Department of Phys Assistant is currently on the unit on this present day interviewing pt. Per Alejo Delacruz [phone] he received a complaint regarding pt 2 weeks ago. Alejo stated it was confidential and could not share any additional information with HEMA. Addendum: 02/22/19 at 1631 by KARLOS GARRIDO HEMA provided Alejo with length of stay information and also discharge plan. HEMA informed him that length of stay in between 7-10 days depending on how well pt stabilizes on medication and also HEMA informed him that she needs to find an accepting Assisted facility in [facility].
[2019-02-22] MEDS: GABAPENTIN 300 MG CAPSULE PO SCH (17:23)
--- NOTE | 2019-02-22 18:27 | NUR ---
GPS/RN WILL ENDORSE TO MUSIC ENGRAVER TO COLLECT URINE SAMPLE PT WAS NOT FOLLOWING THE DIRECTIONS TODAY
--- NOTE | 2019-02-22 19:37 | NUR ---
STARTED GETTING AGITATED, REMOVED HIS GOWN AND DIAPER, THREW THEM ON THE FLOOR, CRYING, REDIRECTABLE, FOLLOWED INSTRUCTIONS. CHANGED HIS GOWN, DIAPER, KEPT CLEAN AND COMFORTABLE. PLACED ON THE VIOLETTA-CHAIR.
[2019-02-22] MEDS: LORAZEPAM 0.5 MG TABLET PO PRN (19:42)
--- NOTE | 2019-02-22 19:43 | NUR ---
PATIENT IS NOW CRYING, AGITATED, ATIVAN 0.5 MG ADMINISTERED.
[2019-02-22] MEDS: TEMAZEPAM 7.5 MG CAPSULE PO PRN (21:01)
[2019-02-22] MEDS: SENNOSIDES 8.6 MG TABLET PO SCH (21:09)
[2019-02-22] MEDS: ATORVASTATIN 40 MG TABLET PO SCH (21:09)
[2019-02-22] MEDS: INSULIN GLARGINE, 100 UNIT/ML CARTRIDGE SQ SCH (21:25)
[2019-02-22] MEDS: *INSULIN REGULAR(HUMULIN R)HUM 100 UNIT/ML VIAL SQ PRN (21:27)
--- NOTE | 2019-02-22 22:30 | NUR ---
PATIENT WAS FOUND ON THE FLOOR AT AROUND 2230, WHEN ASKED WHAT HAPPENED, STATED THAT HE FELL ON THE FLOOR. BED ALARM STILL ON, BED ON LOWEST POSITION, SIDE RAILS UP X2. PLACED PATIENT BACK IN BED WITH ASSISTANCE, ABLE TO MOVE BOTH UPPER AND LOWER EXTREMITIES, ROM SATISFACTORY, C/O GENERALIZED BODY PAIN, TYLENOL 650 MG PO GIVEN. PATIENT SUSTAINED ABRASION/REDNESS ON BOTH HIPS, LEFT BUTTOCK, REDNESS ON SACRAL AREA. NOTED, PHOTO TAKEN. FAMILY NOTIFIED, CALLED [phone], NO ANSWER, LEFT A MESSAGE VIA ANSWERING MACHINE. RN PHYSICAL EDUCATION SPECIALIST NOTIFIED, DR. Radha RODRIGUEZ NOTIFIED, NO NEW ORDER GIVEN. WILL CONTINUE FALL PRECAUTION PROTOCOL TO MAINTAIN SAFETY.
--- NOTE | 2019-02-22 23:20 | NUR ---
TYLENOL 650 MG TAB PO GIVEN, C/O GENERALIZED BODY PAIN
[2019-02-23 07:07] LABS: BASOPHILS % (AUTO) 0.5 % (0.0-2.0); HEMATOCRIT 29 % (39-51); HEMOGLOBIN 9.8 g/dL (13.5-17.5); LYMPHOCYTES % (AUTO) 22.6 % (20.0-44.0); MEAN CORPUSCULAR HGB CONC 34 g/dl (31.0-36.0); MEAN CORPUSCULAR VOLUME 94 fL (80-96); MONOCYTES # (AUTO) 0.7 /CMM (0.1-1.30); MONOCYTES % (AUTO) 8.4 % (2.0-12.0); NEUTROPHILS # (AUTO) 5.8 /CMM (1.8-8.9); NEUTROPHILS % (AUTO) 66.5 % (43.0-81.0); PLATELET COUNT (AUTO) 245 /CMM (150-450); RED BLOOD CELL COUNT(AUTO) 3.08 MIL/uL (4.5-6.0); WHITE BLOOD COUNT (AUTO) 8.7 K/uL (4.3-11.0)
[2019-02-23 07:37] LABS: ALBUMIN 2.2 g/dL (3.4-5.0); BILIRUBIN,TOTAL 0.3 mg/dL (0.2-1.0); CALCIUM, SERUM 8.2 mg/dL (8.5-10.1); CREATININE 1.5 mg/dL (0.6-1.3); MAGNESIUM 1.9 mg/dL (1.8-2.4); PHOSPHORUS 3.3 mg/dL (2.5-4.9); TOTAL PROTEIN, SERUM 5.4 g/dL (6.4-8.2)
[2019-02-23 08:00] VITALS: BP 164/78
[2019-02-23] MEDS: ASPIRIN EC 325 MG TABLET.DR PO SCH (08:31)
[2019-02-23] MEDS: DOCUSATE SODIUM 100 MG CAPSULE PO SCH ×2 (08:31→17:38)
[2019-02-23] MEDS: GABAPENTIN 300 MG CAPSULE PO SCH ×3 (08:31→17:38)
[2019-02-23] MEDS: BLOOD SUGAR DIAGNOSTIC 1 EACH STRIP IN SCH ×4 (08:31→21:44)
[2019-02-23] MEDS: risperiDONE 1 MG TABLET PO SCH ×3 (08:32→17:39)
[2019-02-23] MEDS: AMLODIPINE BESYLATE 10 MG TABLET PO SCH (08:32)
[2019-02-23] MEDS: BENZTROPINE MESYLATE (1 MG) 1 MG TABLET PO SCH ×3 (08:32→17:38)
[2019-02-23] MEDS: DIVALPROEX SODIUM 125 MG CAP.SPRINK PO SCH ×3 (08:32→17:39)
[2019-02-23] MEDS: CARVEDILOL 3.125 MG TABLET PO SCH ×2 (08:33→17:38)
[2019-02-23] MEDS: LOSARTAN POTASSIUM 50 MG TABLET PO SCH (08:33)
[2019-02-23] MEDS: *INSULIN REGULAR(HUMULIN R)HUM 100 UNIT/ML VIAL SQ PRN ×2 (08:48→21:46)
[2019-02-23 16:00] VITALS: BP 136/78
--- NOTE | 2019-02-23 18:34 | NUR ---
GPS/RN PT IS HARD TO REDIRECT. WILL ENDORSE TO PROMOTIONS TEAM LEADER TO COLLECT URINE SAMPLE. UA KIT AT THE BEDSIDE WITH LABELS.
--- NOTE | 2019-02-23 19:40 | NUR ---
GPS/RN OPENING NOTES RECEIVED PATIENT IN BED, RESTING COMFORTABLY IN BED, ASLEEP, REQUIRE SITTER FOR BEHAVIOR SAFETY AND S/P FALL RECENT, WILL MONITOR ANY CHANGES. BED LOCKED, CALL LIGTHS WITHIN REACH. WILL MONITOR.
[2019-02-23 20:00] VITALS: BP 138/73
[2019-02-23] MEDS: LORAZEPAM 0.5 MG TABLET PO PRN (20:35)
[2019-02-23 20:38] VITALS: BP 138/73
[2019-02-23] MEDS: TEMAZEPAM 7.5 MG CAPSULE PO PRN (21:01)
--- NOTE | 2019-02-23 21:01 | NUR ---
GPS/RN NOTES PATIENT OBSERVE INABILITY TO RELAX AND UNABLE TO SLEEP MONITORED AND KEPT COMFORTABLE.
[2019-02-23] MEDS: SENNOSIDES 8.6 MG TABLET PO SCH (21:37)
[2019-02-23] MEDS: ATORVASTATIN 40 MG TABLET PO SCH (21:37)
[2019-02-23] MEDS: INSULIN GLARGINE, 100 UNIT/ML CARTRIDGE SQ SCH (21:48)
[2019-02-24] MEDS: BLOOD SUGAR DIAGNOSTIC 1 EACH STRIP IN SCH ×4 (07:38→21:28)
[2019-02-24 08:00] VITALS: BP 102/58
[2019-02-24] MEDS: *INSULIN REGULAR(HUMULIN R)HUM 100 UNIT/ML VIAL SQ PRN ×4 (08:51→22:22)
[2019-02-24] MEDS: DOCUSATE SODIUM 100 MG CAPSULE PO SCH ×2 (08:52→17:01)
[2019-02-24] MEDS: BENZTROPINE MESYLATE (1 MG) 1 MG TABLET PO SCH ×3 (08:53→17:01)
[2019-02-24] MEDS: GABAPENTIN 300 MG CAPSULE PO SCH ×2 (09:00→12:06)
[2019-02-24] MEDS: DIVALPROEX SODIUM 125 MG CAP.SPRINK PO SCH ×3 (09:00→17:01)
[2019-02-24] MEDS: AMLODIPINE BESYLATE 10 MG TABLET PO SCH (09:00)
[2019-02-24] MEDS: risperiDONE 1 MG TABLET PO SCH ×3 (09:00→17:02)
[2019-02-24] MEDS: LOSARTAN POTASSIUM 50 MG TABLET PO SCH (09:00)
[2019-02-24] MEDS: ASPIRIN EC 325 MG TABLET.DR PO SCH (09:01)
[2019-02-24] MEDS: CARVEDILOL 3.125 MG TABLET PO SCH ×2 (09:02→17:00)
--- NOTE | 2019-02-24 09:11 | NUR ---
RN NOTE: AMLODIPINE AND LOSARTAN NOT GIVEN D/T PATIENT'S BP 106/67
[2019-02-24 16:00] VITALS: BP 112/71
[2019-02-24] MEDS ORDERED: GABAPENTIN 300 MG CAPSULE PO SCH (17:00)
[2019-02-24 20:01] VITALS: BP 121/79
[2019-02-24] MEDS: SENNOSIDES 8.6 MG TABLET PO SCH (21:28)
[2019-02-24] MEDS: ATORVASTATIN 40 MG TABLET PO SCH (21:28)
[2019-02-24] MEDS: TEMAZEPAM 7.5 MG CAPSULE PO PRN (21:28)
[2019-02-24] MEDS: INSULIN GLARGINE, 100 UNIT/ML CARTRIDGE SQ SCH (22:21)
[2019-02-25] MEDS: BLOOD SUGAR DIAGNOSTIC 1 EACH STRIP IN SCH ×4 (07:47→21:56)
[2019-02-25 08:00] VITALS: BP 126/55
[2019-02-25] MEDS: DIVALPROEX SODIUM 125 MG CAP.SPRINK PO SCH ×3 (08:21→16:34)
[2019-02-25] MEDS: ASPIRIN EC 325 MG TABLET.DR PO SCH (08:21)
[2019-02-25] MEDS: BENZTROPINE MESYLATE (1 MG) 1 MG TABLET PO SCH ×3 (08:21→16:35)
[2019-02-25] MEDS: risperiDONE 1 MG TABLET PO SCH ×3 (08:22→16:34)
[2019-02-25] MEDS: GABAPENTIN 100 MG CAPSULE PO SCH ×3 (08:22→16:35)
[2019-02-25] MEDS: DOCUSATE SODIUM 100 MG CAPSULE PO SCH ×2 (08:22→16:35)
[2019-02-25] MEDS: AMLODIPINE BESYLATE 10 MG TABLET PO SCH (08:23)
[2019-02-25] MEDS: LOSARTAN POTASSIUM 50 MG TABLET PO SCH (08:23)
[2019-02-25] MEDS: CARVEDILOL 3.125 MG TABLET PO SCH ×2 (08:23→16:35)
[2019-02-25] MEDS: INSULIN REGULAR, HUMAN 100 UNIT/ML 3 ML VIAL SQ PRN ×2 (12:11→17:27)
[2019-02-25 16:00] VITALS: BP 132/78
[2019-02-25 19:23] LABS: APPEARANCE,URINE CLEAR (CLEAR); BILIRUBIN,URINE NEGATIVE (NEGATIVE); BLOOD, URINE NEGATIVE Ery/uL (NEGATIVE); COLOR,URINE YELLOW (YELLOW); KETONES,URINE NEGATIVE (NEGATIVE); LEUKOCYTE ESTERASE ,URINE NEGATIVE (NEGATIVE); NITRITE, URINE NEGATIVE (NEGATIVE); PROTEIN,URINE 2+ mg/dl (NEGATIVE); UGLUCOSE TRACE mg/dL (NEGATIVE)
[2019-02-25 19:53] LABS: BACTERIA,URINE None seen /HPF (None Seen); EOSINOPHIL,URINE None Seen; RBC,URINE 0-2 /HPF (0-2); SQUAMOUS EPITHELIAL CELL,UR Few /HPF (None Seen); WBC,URINE 0-2 /HPF (0-3)
[2019-02-25 20:00] VITALS: BP 132/77
[2019-02-25 20:01] LABS: URINE TOTAL PROTEIN 155.7 mg/dL (0-11.9)
[2019-02-25 20:18] VITALS: BP 132/77
[2019-02-25] MEDS: ATORVASTATIN 40 MG TABLET PO SCH (21:55)
[2019-02-25] MEDS: SENNOSIDES 8.6 MG TABLET PO SCH (21:55)
[2019-02-25] MEDS: INSULIN GLARGINE, 100 UNIT/ML CARTRIDGE SQ SCH (22:06)
[2019-02-25] MEDS: *INSULIN REGULAR(HUMULIN R)HUM 100 UNIT/ML VIAL SQ PRN (22:09)
--- NOTE | 2019-02-25 22:15 | NUR ---
RN NOTES HS ACCUCHECK BG 177. ADMINISTERED SCHEDULED 5UN DOSE OF LANTUS. GAVE ADDITIONAL INSULIN COVERAGE OF 3UN. SNACKS PROVIDED AT BEDSIDE. WITH 1:1 SITTER.
[2019-02-25] MEDS: TEMAZEPAM 7.5 MG CAPSULE PO PRN (22:25)
[2019-02-26] MEDS: BLOOD SUGAR DIAGNOSTIC 1 EACH STRIP IN SCH ×4 (07:30→22:50)
[2019-02-26] MEDS: *INSULIN REGULAR(HUMULIN R)HUM 100 UNIT/ML VIAL SQ PRN ×3 (08:12→17:34)
[2019-02-26] MEDS: DOCUSATE SODIUM 100 MG CAPSULE PO SCH ×2 (08:34→16:07)
[2019-02-26] MEDS: LOSARTAN POTASSIUM 50 MG TABLET PO SCH (08:35)
[2019-02-26] MEDS: BENZTROPINE MESYLATE (1 MG) 1 MG TABLET PO SCH ×3 (08:35→16:07)
[2019-02-26] MEDS: risperiDONE 1 MG TABLET PO SCH ×3 (08:35→16:07)
[2019-02-26] MEDS: ASPIRIN EC 325 MG TABLET.DR PO SCH (08:35)
[2019-02-26] MEDS: DIVALPROEX SODIUM 125 MG CAP.SPRINK PO SCH ×3 (08:36→16:07)
[2019-02-26] MEDS: CARVEDILOL 3.125 MG TABLET PO SCH ×2 (08:36→16:08)
[2019-02-26] MEDS: GABAPENTIN 100 MG CAPSULE PO SCH ×3 (08:36→16:07)
[2019-02-26] MEDS: AMLODIPINE BESYLATE 10 MG TABLET PO SCH (08:36)
[2019-02-26 08:47] VITALS: BP 127/72
--- NOTE | 2019-02-26 14:20 | NUR ---
Group Note: SW prompted pt to participate in group. Pt is confused and disoriented and could not provide input.
[2019-02-26 16:16] VITALS: BP 108/67
[2019-02-26 19:46] VITALS: BP 120/75
[2019-02-26] MEDS: SENNOSIDES 8.6 MG TABLET PO SCH (22:47)
[2019-02-26] MEDS: TEMAZEPAM 7.5 MG CAPSULE PO PRN (22:47)
[2019-02-26] MEDS: ATORVASTATIN 40 MG TABLET PO SCH (22:48)
[2019-02-26] MEDS: INSULIN GLARGINE, 100 UNIT/ML CARTRIDGE SQ SCH (22:52)
[2019-02-27 01:48] LABS: *SPE A/G RATIO 0.9 (0.7-1.7); *SPE ALBUMIN 2.5 g/dL (2.9-4.4); *SPE ALPHA-1-GLOBULIN 0.3 g/dL (0.0-0.4); *SPE ALPHA-2-GLOBULIN 0.7 g/dL (0.4-1.0); *SPE BETA GLOBULIN 0.8 g/dL (0.7-1.3); *SPE GLOBULIN, TOTAL 2.7 g/dL (2.2-3.9); *SPE M-SPIKE Not Observed g/dL (Not Observed); *SPEGAMMA GLOBULIN 0.9 g/dL (0.4-1.8)
[2019-02-27 08:00] VITALS: BP 130/73
[2019-02-27] MEDS: BLOOD SUGAR DIAGNOSTIC 1 EACH STRIP IN SCH ×4 (08:36→21:58)
[2019-02-27] MEDS: risperiDONE 1 MG TABLET PO SCH ×3 (08:37→17:32)
[2019-02-27] MEDS: BENZTROPINE MESYLATE (1 MG) 1 MG TABLET PO SCH ×3 (08:37→17:32)
[2019-02-27] MEDS: ASPIRIN EC 325 MG TABLET.DR PO SCH (08:38)
[2019-02-27] MEDS: GABAPENTIN 100 MG CAPSULE PO SCH ×3 (08:38→17:33)
[2019-02-27] MEDS: DIVALPROEX SODIUM 125 MG CAP.SPRINK PO SCH ×3 (08:38→17:31)
[2019-02-27] MEDS: DOCUSATE SODIUM 100 MG CAPSULE PO SCH ×2 (08:38→17:33)
[2019-02-27] MEDS: CARVEDILOL 3.125 MG TABLET PO SCH ×2 (08:39→17:33)
[2019-02-27] MEDS: AMLODIPINE BESYLATE 10 MG TABLET PO SCH ×2 (08:39→10:00)
[2019-02-27] MEDS: LOSARTAN POTASSIUM 50 MG TABLET PO SCH (08:43)
[2019-02-27 11:30] VITALS: BP 120/74
--- NOTE | 2019-02-27 11:30 | NUR ---
SNF REFERRALS: SW faxed SNF referrals to [facility] Address: [place] [address] , [facility] Address: [address] [place] [address] , and [facility] (SNF) [address] [facility] [address] for review.
--- NOTE | 2019-02-27 11:30 | NUR ---
PT. VERY GROGGY VS TAKEN-SEE GRAPHIC.
[2019-02-27 13:07] LABS: PTH, INTACT 49 pg/mL (15-65)
[2019-02-27] MEDS: *INSULIN REGULAR(HUMULIN R)HUM 100 UNIT/ML VIAL SQ PRN ×3 (13:14→22:11)
--- NOTE | 2019-02-27 15:26 | NUR ---
GROUP NOTE: SW prompted pt to participate in group. Pt is confused and disoriented and could not provide input.
[2019-02-27 16:00] VITALS: BP 129/72
--- NOTE | 2019-02-27 18:30 | NUR ---
TEARY EYED AT TIMES AND DEPRESSED.
[2019-02-27 19:49] LABS: CALCIUM, SERUM 8.2 mg/dL (8.5-10.1); CREATININE 1.5 mg/dL (0.6-1.3); PHOSPHORUS 3.3 mg/dL (2.5-4.9); POTASSIUM 4.5 mmol/L (3.5-5.1)
[2019-02-27 19:57] VITALS: BP 131/76
[2019-02-27 20:00] VITALS: BP 131/76
[2019-02-27 20:58] LABS: BASOPHILS % (AUTO) 0.3 % (0.0-2.0); EOSINOPHILS % (AUTO) 2.8 % (0.0-6.0); HEMATOCRIT 31 % (39-51); HEMOGLOBIN 10.8 g/dL (13.5-17.5); LYMPHOCYTES # (AUTO) 1.7 /CMM (0.8-4.8); LYMPHOCYTES % (AUTO) 27.8 % (20.0-44.0); MEAN CORPUSCULAR HGB CONC 34 g/dl (31.0-36.0); MEAN CORPUSCULAR VOLUME 95 fL (80-96); MONOCYTES # (AUTO) 0.6 /CMM (0.1-1.30); NEUTROPHILS # (AUTO) 3.6 /CMM (1.8-8.9); NEUTROPHILS % (AUTO) 59.1 % (43.0-81.0); PLATELET COUNT (AUTO) 350 /CMM (150-450); RED BLOOD CELL COUNT(AUTO) 3.32 MIL/uL (4.5-6.0); WHITE BLOOD COUNT (AUTO) 6.2 K/uL (4.3-11.0)
[2019-02-27] MEDS: ATORVASTATIN 40 MG TABLET PO SCH (22:08)
[2019-02-27] MEDS: SENNOSIDES 8.6 MG TABLET PO SCH (22:09)
[2019-02-27] MEDS: INSULIN GLARGINE, 100 UNIT/ML CARTRIDGE SQ SCH (22:12)
[2019-02-27] MEDS: TEMAZEPAM 7.5 MG CAPSULE PO PRN (22:16)
[2019-02-28] MEDS: BLOOD SUGAR DIAGNOSTIC 1 EACH STRIP IN SCH ×4 (07:30→22:18)
[2019-02-28 08:00] VITALS: BP 120/69
[2019-02-28] MEDS: GABAPENTIN 100 MG CAPSULE PO SCH ×3 (09:00→17:00)
[2019-02-28] MEDS: DOCUSATE SODIUM 100 MG CAPSULE PO SCH ×2 (09:00→17:00)
[2019-02-28] MEDS: DIVALPROEX SODIUM 125 MG CAP.SPRINK PO SCH ×3 (09:00→17:00)
[2019-02-28] MEDS: BENZTROPINE MESYLATE (1 MG) 1 MG TABLET PO SCH ×3 (09:00→17:00)
[2019-02-28] MEDS: CARVEDILOL 3.125 MG TABLET PO SCH ×2 (09:00→17:00)
[2019-02-28] MEDS: AMLODIPINE BESYLATE 10 MG TABLET PO SCH (09:00)
[2019-02-28] MEDS: risperiDONE 1 MG TABLET PO SCH ×3 (09:00→17:00)
[2019-02-28] MEDS: LOSARTAN POTASSIUM 50 MG TABLET PO SCH (09:00)
[2019-02-28] MEDS: ASPIRIN EC 325 MG TABLET.DR PO SCH (09:00)
[2019-02-28] MEDS: INSULIN REGULAR, HUMAN 100 UNIT/ML 3 ML VIAL SQ PRN ×2 (09:17→12:24)
--- NOTE | 2019-02-28 10:30 | NUR ---
SW received a call from Joan group rooms coordinator at [facility] Address: [address] [place] [address] , and Lois group rooms coordinator at [facility] ([facility] [address] [facility] [address] stating pt has been accepted to the facilities.
--- NOTE | 2019-02-28 11:16 | NUR ---
HEMA contacted pts son, Cody [phone] and provided him with an update on pts discharge and SNF referrals. SW also provided son with the list of medications pt is currently on. pts son agreed with discharge to [place] SNF if [facility] does not accept pt.
--- NOTE | 2019-02-28 13:47 | NUR ---
Dr. Manzano covering Dr. Slade gave an order to d/c 1:1
--- NOTE | 2019-02-28 15:00 | NUR ---
GROUP NOTE: Pt was not present during group on this present day due to him attending his PC hearing.
[2019-02-28 16:15] VITALS: BP 123/53
[2019-02-28 20:00] VITALS: BP 124/72
[2019-02-28] MEDS: TEMAZEPAM 7.5 MG CAPSULE PO PRN (22:19)
[2019-02-28] MEDS: SENNOSIDES 8.6 MG TABLET PO SCH (22:19)
[2019-02-28] MEDS: ATORVASTATIN 40 MG TABLET PO SCH (22:19)
[2019-02-28] MEDS: INSULIN GLARGINE, 100 UNIT/ML CARTRIDGE SQ SCH (22:22)
[2019-02-28] MEDS: *INSULIN REGULAR(HUMULIN R)HUM 100 UNIT/ML VIAL SQ PRN (22:23)
[2019-03-01 08:00] VITALS: BP 106/66
[2019-03-01] MEDS: BLOOD SUGAR DIAGNOSTIC 1 EACH STRIP IN SCH ×2 (08:14→12:30)
[2019-03-01] MEDS: ASPIRIN EC 325 MG TABLET.DR PO SCH (08:52)
[2019-03-01] MEDS: BENZTROPINE MESYLATE (1 MG) 1 MG TABLET PO SCH ×2 (08:53→13:06)
[2019-03-01] MEDS: GABAPENTIN 100 MG CAPSULE PO SCH ×2 (08:53→13:05)
[2019-03-01] MEDS: DIVALPROEX SODIUM 125 MG CAP.SPRINK PO SCH ×2 (08:53→13:05)
[2019-03-01] MEDS: risperiDONE 1 MG TABLET PO SCH ×2 (08:53→13:05)
[2019-03-01] MEDS: DOCUSATE SODIUM 100 MG CAPSULE PO SCH (08:54)
[2019-03-01] MEDS: CARVEDILOL 3.125 MG TABLET PO SCH (08:54)
[2019-03-01] MEDS: LOSARTAN POTASSIUM 50 MG TABLET PO SCH (08:55)
[2019-03-01 08:57] VITALS: BP 106/66
[2019-03-01] MEDS: AMLODIPINE BESYLATE 10 MG TABLET PO SCH (08:57)
--- NOTE | 2019-03-01 08:58 | NUR ---
HEMA contacted pts son, Cody [phone] and left a voicemail informing him pt will be discharged on this present day to [facility].
--- NOTE | 2019-03-01 09:02 | NUR ---
DISCHARGE NOTE: : Pt will be discharged at 12:30pm via [facility] to [facility] Address: [address] , [place] [address] . Pts son Cody [phone] has been notified and agrees with discharge plan. Pts mood is euthymic with congruent affect, pt is happy he is discharging to [place]. Pt denied visual/auditory hallucinations and denied suicidal/homicidal ideation. Pt will be under the care of Psychiatrist: Dr. Ochoa, located at [address] [place] [id number]; and Centrifuge Operator: Dr. Servin, located at [address] [place] [address] [address], [place] [address]; . The multidisciplinary exitcare form was done, printed, signed, and given to the patient.
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
--- NOTE | 2019-03-01 09:33 | NUR ---
DR. RAPHAEL COVERING FOR DR. MONTOYA GAVE AN ORDER TO D/C HOLD AND /C TO [facility] , TO CONTINUE SAME MEDS INCLUDING PRN AND TO FOLLOW UP WITH PSYCH AND MEDICAL DOCTORS.
--- NOTE | 2019-03-01 09:52 | NUR ---
WOUND CARE CONSULT: PT SEEN FOR BILATERAL HEELS. BILATERAL HEELS HAVE INTACT DEEP TISSUE INJURIES. RECOMMENDATIONS MADE FOR SKIN PROTECTION AND WOUND CARE. DISCUSSED WITH NURSING STAFF. WILL SEE PRN. DAO IN AGREEMENT WITH PLAN OF CARE. Addendum: 03/01/19 at 0953 by HOUSTON CRUZ WNDNU Amended: Links added.
[2019-03-01] MEDS ORDERED: Z GUARD REMEDY 2 OZ OINT TP PRN (10:00)
[2019-03-01] MEDS ORDERED: Z GUARD REMEDY 2 OZ OINT TP SCH (10:00)
--- NOTE | 2019-03-01 10:00 | NUR ---
dr. moreira and flight attendant/inflight supervisor prashanth aware of deep tissue injuries to christopher. heels.
--- NOTE | 2019-03-01 12:00 | NUR ---
have dc orders from psychiatrist and med
--- NOTE | 2019-03-01 12:00 | NUR ---
called nurse at [facility] and gave her report
[2019-03-01] MEDS: INSULIN REGULAR, HUMAN 100 UNIT/ML 3 ML VIAL SQ PRN (12:38)
--- NOTE | 2019-03-01 13:20 | NUR ---
all papers signed,belongings to pt. report to ambulance drivers.pt. denies suicidal ideation or homicidal ideation.taken via amb. to facility.
== END 2019-03-01 13:20 | DRG 885 ==
LOC: ER 15:04 → GPS 17:52
PROVIDERS: ADMIT Psychiatry & Neurology Psychiatry; ATTEND Internal Medicine
DX: F29 Unspecified psychosis not due to a substance or known physiological condition (principal); N17.0 Acute kidney failure with tubular necrosis; N18.3 Chronic kidney disease, stage 3 (moderate); E11.65 Type 2 diabetes mellitus with hyperglycemia; E44.1 Mild protein-calorie malnutrition; K59.00 Constipation, unspecified; F03.90 Unspecified dementia, unspecified severity, without behavioral disturbance, psychotic disturbance, mood disturbance, and anxiety; D64.9 Anemia, unspecified; Z86.73 Personal history of transient ischemic attack (TIA), and cerebral infarction without residual deficits; F19.90 Other psychoactive substance use, unspecified, uncomplicated; E11.22 Type 2 diabetes mellitus with diabetic chronic kidney disease; E11.51 Type 2 diabetes mellitus with diabetic peripheral angiopathy without gangrene; E78.5 Hyperlipidemia, unspecified; I12.9 Hypertensive chronic kidney disease with stage 1 through stage 4 chronic kidney disease, or unspecified chronic kidney disease; Z91.81 History of falling; Z79.82 Long term (current) use of aspirin; Z79.4 Long term (current) use of insulin; Z79.899 Other long term (current) drug therapy; Z91.14 Patient's other noncompliance with medication regimen; Z73.6 Limitation of activities due to disability; D63.8 Anemia in other chronic diseases classified elsewhere
CPT/HCPCS: 36415; 70450-TC; 80048-TC; 80053-TC; 80061-TC; 80076-TC; 80164-TC; 80305; 81000-TC; 82550-TC; 82570-TC; 82962-TC; 83735-TC; 83970; 84100-TC; 84155; 84155-TC; 84165; 84300-TC; 85025-TC; 87081-TC; 97116-TC; 97530-TC; G0480; J1815; J2060; J3490; J7040

== ENCOUNTER 2019-03-01 19:01 | Inpatient (IN) | payer MEDICARE, OTHER ==
[~2019-03-01] VITALS: Ht 170.2 cm; Wt 74.8 kg
[~2019-03-01 19:01] MED LIST changes: -AZIT250T13 PO; +BISA10SU61 RC; +BLOO-668 IN; -CELE200C PO; +DIVA-76 PO; +DOCU100C36 PO; -GUAI120L56 PO; -HYDR-4076 PO; -INSU100I4 SQ; +INSU100V27 SQ; +INSU100V7 SQ; +NA P133E RC; -NITR0.4T48 SL; +QUET100T PO; +QUET25TA PO; +SENN-168 PO
--- NOTE | 2019-03-01 19:33 | NUR ---
PT WAS DROPPED OFF BY UNK WORKER FROM SNF; PT DID NOT COME WITH ACCOMPANYING PAPERWORK; PT AAOX1-2, PT TO BED 14, VSS, NAD NOTED. PENDING MD DUNNE
--- NOTE | 2019-03-01 20:16 | NUR ---
CALLED MICHELLE PLASTIC JIG AND FIXTURE BUILDER
[2019-03-01 20:21] LABS: BASOPHILS % (AUTO) 0.3 % (0.0-2.0); EOSINOPHILS % (AUTO) 1.4 % (0.0-6.0); HEMATOCRIT 35 % (39-51); HEMOGLOBIN 11.6 g/dL (13.5-17.5); LYMPHOCYTES % (AUTO) 18.1 % (20.0-44.0); MEAN CORPUSCULAR HGB CONC 33 g/dl (31.0-36.0); MEAN CORPUSCULAR VOLUME 96 fL (80-96); MONOCYTES # (AUTO) 1.1 /CMM (0.1-1.30); MONOCYTES % (AUTO) 9.9 % (2.0-12.0); NEUTROPHILS # (AUTO) 7.8 /CMM (1.8-8.9); NEUTROPHILS % (AUTO) 70.3 % (43.0-81.0); PLATELET COUNT (AUTO) 396 /CMM (150-450); RED BLOOD CELL COUNT(AUTO) 3.64 MIL/uL (4.5-6.0); WHITE BLOOD COUNT (AUTO) 11.1 K/uL (4.3-11.0)
[2019-03-01 20:31] LABS: ALCOHOL, BLOOD < 3 mg/dL (0-0); CALCIUM, SERUM 8.3 mg/dL (8.5-10.1); CARBON DIOXIDE 27 mmol/L (21-32); CHLORIDE 102 mmol/L (98-107); CREATININE 1.6 mg/dL (0.6-1.3); GLUCOSE 155 mg/dL (74-106); POTASSIUM 4.6 mmol/L (3.5-5.1); SODIUM SERUM 133 mmol/L (136-145); UREA NITROGEN, BLOOD 34 mg/dL (7-18)
--- NOTE | 2019-03-01 22:11 | NUR ---
REPORT GIVEN TO ISAAC FOR KIMMY; PT WILL BE TRANPOSRTED TO [facility]
[2019-03-01] MEDS ORDERED: ACETAMINOPHEN 325 MG TABLET PO PRN (23:00)
[2019-03-01] MEDS ORDERED: MAG HYDROX/AL HYDROX/SIMETH 30 ML UDC PO PRN (23:00)
[2019-03-01] MEDS ORDERED: MAGNESIUM HYDROXIDE 30 ML UDC PO PRN (23:00)
--- NOTE | 2019-03-01 23:00 | NUR ---
GPS/CRATE OPENER NOTE: ADMITTED A 58 YEAR OLD MALE FROM [facility], PATIENT WAS DISCHARGED SAME DAY FROM [facility]. CAME TO THE [facility] UNIT AROUND 2300 ACCOMPANIED BY MALE SOH/ER STAFF. PATIENT ADMITTED ON 5150 HOLD FOR GD. PER HOLD PATIENT COULD NOT BE MANAGED AT THE FACILITY AND WOULD NOT RESPOND TO STAFF DIRECTION. PATIENT WAS SENT BACK TO [facility]. PATIENT TRIED TO LEAVE THE FACILITY SEVERAL TIMES. PLACED PATIENT IN BED, ON ADMISSION, HE SHOWS NO S/S OF ANY PAIN, KNOWS HIS NAME, TIME AND PLACE. NO APPARENT DISTRESS NOTED. SKIN WARM AND DRY. NOTED OPEN WOUND ON BOTH HEELS, PHOTOS TAKEN. WOUND CONSULT ORDERED. PATIENT APPEARS UNKEMPT, SLOWED SPEECH, CALM. PATIENT IS COOPERATIVE, INITIATES INTERACTION AND INTERACTS WHEN ENGAGED. RESPIRATION EVEN, BREATHING PATTERN NON LABORED, NO ACUTE RESPIRATORY DISTRESS NOTED. 97% SATURATION ON ROOM AIR, BP 137/72, HR 87. PATIENT HAS A SITTER FOR AWOL RISK AND FALL RISK. FALL PROTOCOL INITIATED, CALL SONG AT THE BEDSIDE, BED LOCKED AND ON LOWEST POSITION, BED ALARM ACTIVATED. FALL AND SAFETY CHECKLIST DONE. 1:1 SITTER ORDERED. OFFERED TOILET USE Q 2 HOURS. BELONGINGS INVENTORIED AND CHECKED FOR CONTRABAND. PATIENT WAS SEEN AND EXAMINED BY DR. ROONEY, MED RECONCILIATION DONE. PATIENT IS BEING MANAGED BY DR. MONTOYA. FAMILY NOTIFIED, FRANKLIN BLACKMAN, (DAUGHTER), , LEFT MESSAGE VIA ANSWERING MACHINE. MRSA SCREEN DONE. BED LOCKED AND KEPT ON LOWEST POSITION. WILL CONTINUE TO MONITOR Q 15 MINS. FOR SAFETY AND BEHAVIOR
--- NOTE | 2019-03-01 23:31 | NUR ---
PAGED AND SPOKE WITH DR. Radha ROONEY, RE: MED RECONCILIATION. SHE SAID SHE WILL COME BY [facility].
--- NOTE | 2019-03-01 23:32 | NUR ---
NOTED OPEN WOUND ON BOTH HEELS, APPEARS UNSTAGEABLE, PHOTO TAKEN. NEED WOUND CONSULT IN AM
--- NOTE | 2019-03-01 23:32 | NUR ---
MRSA SCREEN DONE
[2019-03-01] MEDS: BLOOD SUGAR DIAGNOSTIC 1 EACH STRIP IN SCH (23:57)
--- NOTE | 2019-03-01 23:57 | NUR ---
INITIAL BLOOD SUGAR 190 MG/DL.
--- NOTE | 2019-03-01 23:58 | NUR ---
FAMILY NOTIFIED, DAUGHTER FRANKLIN BLACKMAN, LEFT A MESSAGE VIA [employer] MACHINE.
--- NOTE | 2019-03-01 23:58 | NUR ---
SEEN AND EXAMINED BY DR. ROONEY AT THIS TIME.
--- NOTE | 2019-03-02 00:02 | NUR ---
HS SNACKS GIVEN, JUICE 120 ML AND A SANDWICH
[2019-03-02] MEDS ORDERED: NA PHOS,M-B/NA PHOS,DI-BA 1 EA ENEMA RC PRN (01:00)
[2019-03-02] MEDS: ATORVASTATIN 40 MG TABLET PO SCH ×2 (01:00→21:17)
[2019-03-02] MEDS ORDERED: BISACODYL SUPP (10 MG) 10 MG/SUPP.RECT SUPP.RECT RC PRN (01:00)
--- NOTE | 2019-03-02 02:09 | NUR ---
NO INSULIN SS DUE, BLOOD SUGAR WAS 190 MG/DL. ORDER IS TO NOTIFY MD IF BS IS ABOVE 250 OR BELOW 60.
--- NOTE | 2019-03-02 02:14 | NUR ---
REFUSED LIPITOR 80 MG AT THIS TIME. ATTEMPTED X2 AND STILL REFUSED.
[2019-03-02] MEDS: TEMAZEPAM 7.5 MG CAPSULE PO PRN ×2 (02:46→21:19)
--- NOTE | 2019-03-02 02:46 | NUR ---
Patint not sleeping, restless in bed, kept talking to self. Restoril 7.5 mg cap po given.
[2019-03-02] MEDS: BLOOD SUGAR DIAGNOSTIC 1 EACH STRIP IN SCH ×4 (07:30→21:29)
[2019-03-02 08:00] VITALS: BP 129/69
[2019-03-02] MEDS: INSULIN ASPART/LISPRO 100 UNIT/ML CARTRIDGE SQ SCH ×3 (08:30→17:41)
[2019-03-02] MEDS: LOSARTAN POTASSIUM 50 MG TABLET PO SCH (09:00)
[2019-03-02] MEDS: GABAPENTIN 100 MG CAPSULE PO SCH ×3 (09:00→17:20)
[2019-03-02] MEDS: ASPIRIN EC 325 MG TABLET.DR PO SCH (09:00)
[2019-03-02] MEDS: DOCUSATE SODIUM 100 MG CAPSULE PO SCH ×2 (09:00→17:19)
[2019-03-02] MEDS: AMLODIPINE BESYLATE 10 MG TABLET PO SCH (09:00)
[2019-03-02] MEDS ORDERED: DIVALPROEX SODIUM 250 MG TABLET.DR PO SCH (09:00)
[2019-03-02] MEDS: BENZTROPINE MESYLATE (1 MG) 1 MG TABLET PO SCH ×2 (12:28→17:19)
[2019-03-02] MEDS: DIVALPROEX SODIUM 250 MG TABLET.DR PO SCH ×2 (12:28→17:18)
[2019-03-02] MEDS: risperiDONE 0.25 MG TABLET PO SCH ×2 (12:28→17:19)
[2019-03-02 13:36] LABS: ALBUMIN 2.4 g/dL (3.4-5.0); BILIRUBIN,TOTAL 0.3 mg/dL (0.2-1.0); CALCIUM, SERUM 8.2 mg/dL (8.5-10.1); CREATININE 1.4 mg/dL (0.6-1.3); POTASSIUM 4.9 mmol/L (3.5-5.1); TOTAL PROTEIN, SERUM 6.3 g/dL (6.4-8.2)
[2019-03-02 13:38] LABS: CHOLESTEROL 93 mg/dL (<200); HDL CHOLESTEROL 37 mg/dL (40-60); LDL 48 mg/dL (0-99); TRIGLYCERIDES 75 mg/dL (30-150)
[2019-03-02 14:17] LABS: BASOPHILS % (AUTO) 0.3 % (0.0-2.0); EOSINOPHILS % (AUTO) 1.8 % (0.0-6.0); HEMATOCRIT 32 % (39-51); HEMOGLOBIN 10.8 g/dL (13.5-17.5); LYMPHOCYTES # (AUTO) 1.3 /CMM (0.8-4.8); LYMPHOCYTES % (AUTO) 16.9 % (20.0-44.0); MEAN CORPUSCULAR HGB CONC 34 g/dl (31.0-36.0); MEAN CORPUSCULAR VOLUME 94 fL (80-96); MONOCYTES # (AUTO) 0.7 /CMM (0.1-1.30); MONOCYTES % (AUTO) 9.5 % (2.0-12.0); NEUTROPHILS # (AUTO) 5.6 /CMM (1.8-8.9); NEUTROPHILS % (AUTO) 71.5 % (43.0-81.0); PLATELET COUNT (AUTO) 370 /CMM (150-450); WHITE BLOOD COUNT (AUTO) 7.8 K/uL (4.3-11.0)
[2019-03-02 16:00] VITALS: BP 123/67
[2019-03-02 19:37] VITALS: BP 122/74
[2019-03-02] MEDS: SENNOSIDES 8.6 MG TABLET PO SCH (21:18)
[2019-03-02] MEDS: INSULIN GLARGINE, 100 UNIT/ML CARTRIDGE SQ SCH (21:34)
[2019-03-03 08:00] VITALS: BP 110/70
[2019-03-03] MEDS: BLOOD SUGAR DIAGNOSTIC 1 EACH STRIP IN SCH ×4 (08:46→20:53)
[2019-03-03] MEDS: INSULIN ASPART/LISPRO 100 UNIT/ML CARTRIDGE SQ SCH ×3 (08:52→17:30)
[2019-03-03] MEDS: ASPIRIN EC 325 MG TABLET.DR PO SCH (08:57)
[2019-03-03] MEDS: BENZTROPINE MESYLATE (1 MG) 1 MG TABLET PO SCH ×3 (08:57→16:57)
[2019-03-03] MEDS: DOCUSATE SODIUM 100 MG CAPSULE PO SCH ×2 (08:57→16:58)
[2019-03-03] MEDS: GABAPENTIN 100 MG CAPSULE PO SCH ×3 (08:58→16:58)
[2019-03-03] MEDS: risperiDONE 0.25 MG TABLET PO SCH ×3 (08:58→16:57)
[2019-03-03] MEDS: DIVALPROEX SODIUM 250 MG TABLET.DR PO SCH ×2 (08:58→16:57)
[2019-03-03] MEDS: AMLODIPINE BESYLATE 10 MG TABLET PO SCH (08:59)
[2019-03-03] MEDS: LOSARTAN POTASSIUM 50 MG TABLET PO SCH (08:59)
[2019-03-03 16:00] VITALS: BP 115/69
--- NOTE | 2019-03-03 17:38 | NUR ---
GPS/RN ACCUCHECK WITH BS=67. NO SCHEDULED INSULIN GIVEN. ORANGE JUICE, FOOD ENCOURAGED.
[2019-03-03 20:00] VITALS: BP 112/65
[2019-03-03] MEDS: TEMAZEPAM 7.5 MG CAPSULE PO PRN (20:52)
[2019-03-03] MEDS: SENNOSIDES 8.6 MG TABLET PO SCH (20:53)
[2019-03-03] MEDS: INSULIN GLARGINE, 100 UNIT/ML CARTRIDGE SQ SCH (20:56)
[2019-03-03] MEDS: ATORVASTATIN 40 MG TABLET PO SCH (21:06)
[2019-03-04] MEDS: INSULIN ASPART/LISPRO 100 UNIT/ML CARTRIDGE SQ SCH ×4 (07:30→19:04)
[2019-03-04 08:00] VITALS: BP 149/87
[2019-03-04] MEDS: BLOOD SUGAR DIAGNOSTIC 1 EACH STRIP IN SCH ×4 (08:06→21:21)
--- NOTE | 2019-03-04 08:15 | NUR ---
HEMA received a call from pts Sister Lilibeth [phone] who stated she is unable to care for pt or assist with pts discharge as she is currently battling cancer. Per sister, she stated that her and pt have not been in contact for many years and she believes he should be discharged closer to his children. Sister does however, want to receive updates from [facility]. [facility] will contact pts sister as needed to provide her with updates.
--- NOTE | 2019-03-04 08:53 | NUR ---
WOUND CARE CONSULT: PT PRESENTS WITH BILATERAL HEEL DEEP TISSUE INJURIES (INTACT), PRESENT ON ADMISSION. RECOMMENDATIONS MADE FOR WOUND CARE AND SKIN PROTECTION. DISCUSSED WITH NURSING STAFF. CURRENT NICOLASA SCORE IS 17. IN AGREEMENT WITH PLAN OF CARE. Addendum: 03/04/19 at 0855 by HOUSTON CRUZ WNDNU Amended: Links added. Addendum: 03/04/19 at [address] LUQUE NOTIFIED OF REQUEST FOR DPM CONSULT.
--- NOTE | 2019-03-04 08:59 | NUR ---
Psychosocial Note: I, Kristie Dyson LAY OUT AND DETAIL DRAFTER, attest to the patients previous psychosocial information dated 02/08/19 Update On Events leading to Admission and Discharge Plan: Pt has returned to the hospital within 8 hours of his previous discharge date due to pts increased agitation and unmanageable behavior at [facility]. Per psychiatric hold, pt could not be managed at the facility and would not respond to staff direction. Per hold, pt attempted to elope several times from the facility stating he was going to go surfing then go to his older sisters Lilibeth's house and was refusing to go back inside the facility. The current plan is to increase the patient on his medications and possibly file for LPS Conservatorship. Per pt, he wants to be discharged to [place] to his sisters house. Per pts Sister Lilibeth [phone] she is unable to care for him or assist him as she is currently battling cancer. Per sister, she stated that her and pt have not been in contact for many years. Pt appeared to be ill, refusing to eat and coughing. Per Nurse, pt will be evaluated by the hospitalist for further medical treatment. On approach pt was lethargic not wanting to speak. SW will form a safe and proper discharge in collaboration with MD and pts son.
[2019-03-04] MEDS ORDERED: Z GUARD REMEDY 2 OZ OINT TP PRN (09:00)
[2019-03-04] MEDS: GABAPENTIN 100 MG CAPSULE PO SCH ×3 (09:00→18:51)
[2019-03-04] MEDS: DOCUSATE SODIUM 100 MG CAPSULE PO SCH ×2 (09:00→18:51)
[2019-03-04] MEDS: risperiDONE 0.25 MG TABLET PO SCH ×3 (09:00→18:52)
[2019-03-04] MEDS: DIVALPROEX SODIUM 250 MG TABLET.DR PO SCH ×2 (09:00→18:51)
--- NOTE | 2019-03-04 09:30 | NUR ---
HEMA contacted Cheyenne-slab lifting supervisor at [facility] Whole PERSON CARE PROGRAM [phone] and left a voicemail for callback for referral information.
--- NOTE | 2019-03-04 10:00 | NUR ---
RN NOTES PATIENT OVERSEDATED UNABLE TO ADMINISTERED 0900 SCHEDULED MEDICATION. PATIENT POOR EATING. SEEN WOUND NURSE, ORDER TAKEN AND CARRIED OUT. ASSIST PATIENT TURN AND REPOSITION Q 2 HR. CONTINUED MONITORING.
[2019-03-04] MEDS: BENZTROPINE MESYLATE (1 MG) 1 MG TABLET PO SCH ×2 (12:21→18:51)
[2019-03-04] MEDS: ASPIRIN EC 325 MG TABLET.DR PO SCH (12:24)
[2019-03-04] MEDS: LOSARTAN POTASSIUM 50 MG TABLET PO SCH (12:25)
[2019-03-04] MEDS: AMLODIPINE BESYLATE 10 MG TABLET PO SCH (12:25)
[2019-03-04] MEDS: LORAZEPAM 0.5 MG TABLET PO PRN (12:28)
--- NOTE | 2019-03-04 12:28 | NUR ---
RN NOTES ADMINISTERED ATIVAN 0.5 MG PO PRN FOR ANXIETY, AND CRYING SAME TIME. PATIENT WAS TRYING GET OUT OF BED, UNDRESS SELF, REMOVED DIAPERS, AND LINENS. 1:1 SITTER NEXT TO THE BED. SAFETY PRECAUTION MAINTAINED ALL THE TIME. ADMINISTERED 1300 MEDICATION. BS-143 MG/DL. CONTINUED MONITORING. PATIENT REFUSED BREAKFAST, AND LUNCH.
--- NOTE | 2019-03-04 13:00 | NUR ---
RN NOTES GET STAT ORDER CHEST X-RAY FOR CONGESTION, AND COUGHING PER YULIA COMPRESSOR OPERATOR ADJUSTER. ORDER TAKEN AND CARRIED OUT.
--- NOTE | 2019-03-04 15:13 | NUR ---
HEMA received a call from Kirsten Persaud from [facility] whole Person Care program [phone] and requested information regarding pts frequent hospitalizations. Kirsten stated she would consult with Ney-snow removing supervisor regarding how to proceed with pts case.
--- NOTE | 2019-03-04 15:45 | NUR ---
GROUP NOTE: Pt was unable to attend group therapy session on 03/04/19 at 2:00PM due to cognitive impairment and poor physical health.
[2019-03-04 16:00] VITALS: BP 148/82
--- NOTE | 2019-03-04 17:00 | NUR ---
RN NOTES CHEST X-RAY RESULT NOTED YULIA GAUNTLET PAIRER, NO NEW ORDER. CONTINUED MONITORING.
[2019-03-04 19:45] VITALS: BP 114/79
[2019-03-04] MEDS: SENNOSIDES 8.6 MG TABLET PO SCH (21:18)
[2019-03-04] MEDS: ATORVASTATIN 40 MG TABLET PO SCH (21:18)
[2019-03-04] MEDS: TEMAZEPAM 7.5 MG CAPSULE PO PRN (21:19)
[2019-03-04] MEDS: INSULIN GLARGINE, 100 UNIT/ML CARTRIDGE SQ SCH (21:38)
[2019-03-05 08:00] VITALS: BP 118/71
[2019-03-05] MEDS: BLOOD SUGAR DIAGNOSTIC 1 EACH STRIP IN SCH ×4 (08:25→22:30)
[2019-03-05] MEDS: INSULIN ASPART/LISPRO 100 UNIT/ML CARTRIDGE SQ SCH ×3 (08:26→17:33)
[2019-03-05] MEDS: DOCUSATE SODIUM 100 MG CAPSULE PO SCH ×2 (08:28→16:56)
[2019-03-05] MEDS: DIVALPROEX SODIUM 250 MG TABLET.DR PO SCH ×2 (08:28→16:55)
[2019-03-05] MEDS: ASPIRIN EC 325 MG TABLET.DR PO SCH (08:29)
[2019-03-05] MEDS: risperiDONE 0.25 MG TABLET PO SCH ×3 (08:29→16:55)
[2019-03-05] MEDS: BENZTROPINE MESYLATE (1 MG) 1 MG TABLET PO SCH ×3 (08:29→16:55)
[2019-03-05] MEDS: GABAPENTIN 100 MG CAPSULE PO SCH ×3 (08:29→16:55)
[2019-03-05] MEDS: LOSARTAN POTASSIUM 50 MG TABLET PO SCH (08:30)
[2019-03-05] MEDS: AMLODIPINE BESYLATE 10 MG TABLET PO SCH (08:31)
[2019-03-05] MEDS: POVIDONE-IODINE OINT 28.4 GM TUBE TP SCH ×2 (08:34→16:53)
--- NOTE | 2019-03-05 10:27 | NUR ---
RN-CO: Patient is more redirectable, no incident of hurting himself overnight nor yesterday. Discontinued 1:1 sitter. We will continue to monitor.
[2019-03-05] MEDS: CLOTRIMAZOLE 1% 15 GM TUBE TP SCH ×2 (13:32→16:53)
--- NOTE | 2019-03-05 14:13 | NUR ---
HEMA faxed [facility] WHOLE PERSON CARE REFERRAL TO Camila Bueno- resource program teacher [email or web address].
[2019-03-05 16:00] VITALS: BP 119/71
--- NOTE | 2019-03-05 16:12 | NUR ---
HEMA contacted pts Sister Lilibeth [phone] and left a voicemail informing her of pts discharge tomorrow 03/06/19 to [facility].
--- NOTE | 2019-03-05 16:39 | NUR ---
Group Note: Pt was encouraged to attend group therapy on 03/05/19 at 3PM. Pt attended and was engaged but he was not appropriate to participate due to his psychosis and devin.
[2019-03-05 20:19] VITALS: BP 126/76
[2019-03-05] MEDS: ATORVASTATIN 40 MG TABLET PO SCH (21:29)
[2019-03-05] MEDS: SENNOSIDES 8.6 MG TABLET PO SCH (21:29)
[2019-03-05] MEDS: INSULIN GLARGINE, 100 UNIT/ML CARTRIDGE SQ SCH (22:00)
[2019-03-05] MEDS: LORAZEPAM 0.5 MG TABLET PO PRN (23:10)
[2019-03-06] MEDS: BLOOD SUGAR DIAGNOSTIC 1 EACH STRIP IN SCH ×3 (07:44→17:27)
[2019-03-06 08:00] VITALS: BP 117/71
[2019-03-06] MEDS: INSULIN ASPART/LISPRO 100 UNIT/ML CARTRIDGE SQ SCH ×4 (08:08→17:30)
[2019-03-06] MEDS: DOCUSATE SODIUM 100 MG CAPSULE PO SCH ×2 (08:21→16:22)
[2019-03-06] MEDS: risperiDONE 0.25 MG TABLET PO SCH ×3 (08:22→16:23)
[2019-03-06] MEDS: ASPIRIN EC 325 MG TABLET.DR PO SCH (08:22)
[2019-03-06] MEDS: AMLODIPINE BESYLATE 10 MG TABLET PO SCH (08:22)
[2019-03-06] MEDS: GABAPENTIN 100 MG CAPSULE PO SCH ×3 (08:23→16:22)
[2019-03-06] MEDS: BENZTROPINE MESYLATE (1 MG) 1 MG TABLET PO SCH ×3 (08:23→16:22)
--- NOTE | 2019-03-06 08:24 | NUR ---
HEMA contacted Pts son Cody [phone] and left a voicemail informing him pt is discharge on this present day to [facility] ([facility]).
[2019-03-06] MEDS: LOSARTAN POTASSIUM 50 MG TABLET PO SCH (08:25)
[2019-03-06] MEDS: DIVALPROEX SODIUM 250 MG TABLET.DR PO SCH ×2 (08:25→16:23)
[2019-03-06] MEDS: POVIDONE-IODINE OINT 28.4 GM TUBE TP SCH ×2 (09:48→16:25)
[2019-03-06] MEDS: CLOTRIMAZOLE 1% 15 GM TUBE TP SCH ×2 (09:49→16:25)
--- NOTE | 2019-03-06 10:21 | NUR ---
DR. MONTOYA GAVE AN ORDER TO D/C HOLD AND D/C TO [facility], TO CONTINUE SAME MEDS INCLUDING PRN AND TO FOLLOW UP WITH PSYCH AND MEDICAL DOCTORS. WITHOUT DISTRESS, DENIES SUICIDAL AND HOMICIDAL.
--- NOTE | 2019-03-06 12:46 | NUR ---
DISCHARGE NOTE: Pt will be discharged at 4:00pm via [facility] [place] [facility] Address: [address] [place] [address] . Pts Sister Lilibeth [phone] and son Cody [phone] have been notified. Pts mood is irritable with congruent affect. Pt denied visual/auditory hallucinations and denied suicidal/homicidal ideation. Pt will be under the care of Psychiatrist: Dr. Franci Conner [address], [place] [address] [phone] and Certified Peer Specialist: Dr. Gianni Wesley [address], [place] [address] [phone]. The multidisciplinary exitcare form was done, printed, signed, and given to the patient.
--- NOTE | 2019-03-06 13:19 | NUR ---
YULIA ROSA ADVERTISING COLUMNIST NOTIFIED ABOUT THE DISCHARGE AND SAID TO CONTINUE SAME MEDS INCLUDING PRN. PICTURES TAKEN FOR THE SKIN ISSUES AND WOUND TREATMENT RENDERED.
--- NOTE | 2019-03-06 15:20 | NUR ---
REPORT GIVEN SUSHILA(COURT) OVER THE FACILITY.
[2019-03-06 16:00] VITALS: BP 110/61
--- NOTE | 2019-03-06 17:32 | NUR ---
BS IS 139 AC DINNER. PT. ATE 50% FOR DINNER AND REFUSED FOR HUMALOG 15 UNITS. EXPLAINED ON THE IMPORTANCE AND STILL REFUSING.
--- NOTE | 2019-03-06 18:25 | NUR ---
PT. LEFT THE UNIT VIA AMBULANCE AND TRANSPORTED VIA A GURNEY WITH BELONGINGS. LEFT WITHOUT DISTRESS AND ON STABLE CONDITION. BP 97/57, IA 85, RR 20 AND OXYGEN SAT OF 97%.
== END 2019-03-06 18:25 | DRG 885 ==
LOC: ER 19:06 → GPS 21:58
PROVIDERS: ADMIT Psychiatry & Neurology Psychiatry; ATTEND Student in an Organized Health Care Education/Training Program
DX: F25.9 Schizoaffective disorder, unspecified (principal); N18.3 Chronic kidney disease, stage 3 (moderate); E11.65 Type 2 diabetes mellitus with hyperglycemia; E11.22 Type 2 diabetes mellitus with diabetic chronic kidney disease; I12.9 Hypertensive chronic kidney disease with stage 1 through stage 4 chronic kidney disease, or unspecified chronic kidney disease; F03.90 Unspecified dementia, unspecified severity, without behavioral disturbance, psychotic disturbance, mood disturbance, and anxiety; F29 Unspecified psychosis not due to a substance or known physiological condition; Z79.4 Long term (current) use of insulin; Z79.82 Long term (current) use of aspirin; Z79.899 Other long term (current) drug therapy; Z86.73 Personal history of transient ischemic attack (TIA), and cerebral infarction without residual deficits; K59.00 Constipation, unspecified; G89.29 Other chronic pain; E78.5 Hyperlipidemia, unspecified; Z73.6 Limitation of activities due to disability; D63.8 Anemia in other chronic diseases classified elsewhere; E11.21 Type 2 diabetes mellitus with diabetic nephropathy; S80.822A Blister (nonthermal), left lower leg, initial encounter; S80.821A Blister (nonthermal), right lower leg, initial encounter; X58.XXXA Exposure to other specified factors, initial encounter; Y92.9 Unspecified place or not applicable; B35.1 Tinea unguium; I70.0 Atherosclerosis of aorta; L89.620 Pressure ulcer of left heel, unstageable; L89.610 Pressure ulcer of right heel, unstageable
CPT/HCPCS: 36415; 70450-TC; 71045-TC; 80048-TC; 80053-TC; 80061-TC; 80076-TC; 80164-TC; 80305; 81000-TC; 82550-TC; 82570-TC; 82962-TC; 83735-TC; 83970; 84100-TC; 84155; 84155-TC; 84165; 84300-TC; 85025-TC; 87081-TC; 97116-TC; 97530-TC; A6402; G0480; J1815; J2060; J3490; J7040